=== PATIENT | female | born 1965 | race Caucasian/White ===

== ENCOUNTER 2019-06-09 04:57 | Inpatient (IN) ==
[2019-06-06 15:30] LABS: Appearance,Urine CLEAR; Bilirubin,Urine NEG (NEG); Color,Urine YELLOW; Glucose,Urine (UA) NEGATIVE (NEG); Ketones,Urine NEG (NEG); Leukocyte Esterase,Urine NEG /uL (NEG); Nitrate,Urine NEG (NEG); Protein,Urine NEG (NEG); Urine Blood NEG mg/dL (<0.03); Urobilinogen,Urine NEG (NEG)
[2019-06-06 16:08] LABS: Basophils # (Auto) 0 K/mcL (0.0-0.3); Basophils % (Auto) 0.2 % (0.0-2.0); Eosinophils # (Auto) 0.1 K/mcL (0.0-0.7); Eosinophils % (Auto) 1.7 % (0.0-7.0); Hematocrit 34.9 % (36.0-48.0); Hemoglobin 11.5 g/dL (12.0-15.0); Lymphocytes # (Auto) 1.8 K/mcL (1.5-4.8); Lymphocytes % (Auto) 24.8 % (15.5-49.0); Mean Cell Volume 82.1 fL (80.0-100.0); Mean Corpuscular HGB Conc 32.9 g/dL (31.0-36.0); Mean Platelet Volume 8.2 fL (7.4-10.4); Monocytes # (Auto) 0.5 K/mcL (0.1-0.9); Monocytes % (Auto) 7.3 % (1.0-12.0); Platelet Count 194 K/mcL (140-440); RBC 4.25 M/mcL (4.00-5.20); Red Cell Distribution Width 21.1 % (11.5-14.5); WBC 7.2 K/mcL (4.5-11.0)
[2019-06-06 16:59] LABS: Blood Urea Nitrogen 13 mg/dl (6-20); Carbon Dioxide 25 mmol/L (22-30); Chloride 100 mmol/L (96-108); Glomerular Filtration Rate 100; Glucose 86 mg/dL (70-105)
[2019-06-09] MEDS ORDERED: IPRATROPIUM/ALBUTEROL 3 ML AMPUL.NEB NEB PRN ×2 (05:00→08:30)
[2019-06-09] MEDS ORDERED: SCOPOLAMINE 1 PATCH PATCH TOPICAL PRN (05:00)
[2019-06-09] MEDS ORDERED: ceFAZolin 2 GM in DEXTROSE 5% IN WATER 50 ML IV SCH (06:00)
[2019-06-09] MEDS ORDERED: 0.9 % SODIUM CHLORIDE 9 ML, KETOROLAC 30 MG, ROPIVACAINE HCL/PF 49.5 ML, EPINEPHrine 0.... IJ SCH (06:00)
[2019-06-09] MEDS ORDERED: ALBUTEROL SULFATE 2.5 MG/3 ML NEBULIZER ONE (07:25)
[2019-06-09] MEDS ORDERED: IPRATROPIUM/ALBUTEROL 3 ML AMPUL.NEB NEB ONE (07:26)
[2019-06-09] MEDS ORDERED: GENTAMICIN SULFATE 800 MG/20 ML VIAL IR ONE (07:26)
[2019-06-09] MEDS ORDERED: ONDANSETRON 4 MG/2 ML VIAL ONE (07:32)
[2019-06-09] MEDS ORDERED: DEXAMETHASONE 10 MG/ML VIAL ONE (07:32)
[2019-06-09] MEDS ORDERED: KETAMINE 10 MG/ML ML ONE (07:32)
[2019-06-09] MEDS ORDERED: PROPOFOL 200 MG/20 ML VIAL IV ONE (07:32)
[2019-06-09] MEDS ORDERED: MIDAZOLAM 5 MG/5 ML VIAL ONE (07:32)
[2019-06-09] MEDS ORDERED: LIDOCAINE HCL/PF 100 MG/5 ML SYRINGE IV ONE (07:32)
[2019-06-09] MEDS ORDERED: GLYCOPYRROLATE 0.2 MG/ML VIAL IV ONE (07:32)
[2019-06-09] MEDS ORDERED: PHENYLEPHRINE 10 MG/ML VIAL ONE (07:32)
[2019-06-09] MEDS ORDERED: HYDROmorphone 2 MG/ML VIAL IV PRN (08:30)
[2019-06-09] MEDS ORDERED: ONDANSETRON 4 MG/2 ML VIAL IV PRN ×2 (08:30→10:03)
[2019-06-09] MEDS ORDERED: NALOXONE HCL 0.4 MG/ML VIAL IV PRN (08:30)
[2019-06-09] MEDS ORDERED: FLUMAZENIL 0.1 MG/ML ML IV PRN (08:30)
[2019-06-09] MEDS ORDERED: METOPROLOL TARTRATE 5 MG/5 ML VIAL IV PRN (08:30)
[2019-06-09] MEDS ORDERED: fentaNYL 100 MCG/2 ML VIAL IV PRN (08:30)
[2019-06-09] MEDS ORDERED: PROMETHAZINE 25 MG/ML VIAL IV PRN (08:30)
[2019-06-09] MEDS ORDERED: ATROPINE SULFATE 0.4 MG/ML VIAL IV PRN (08:30)
[2019-06-09] MEDS ORDERED: ACETAMINOPHEN 1,000 MG/100 ML BOTTLE IV ONE (08:30)
[2019-06-09] MEDS ORDERED: LACTATED RINGERS 1,000 ML IV SCH (08:30)
[2019-06-09] MEDS ORDERED: KETOROLAC 30 MG/ML VIAL IV PRN (08:30)
[2019-06-09] MEDS ORDERED: METHOCARBAMOL 1,000 MG/10 ML VIAL IV PRN (08:30)
[2019-06-09] MEDS ORDERED: ePHEDrine 50 MG/ML AMPUL IV PRN (08:30)
[2019-06-09] MEDS ORDERED: diphenhydrAMINE 50 MG/ML VIAL IV PRN (08:30)
[2019-06-09] MEDS ORDERED: LORazepam 2 MG/ML VIAL IV ONE (08:32)
[2019-06-09] MEDS ORDERED: TRANEXAMIC ACID 1,000 MG/10 ML VIAL IV ONE (10:03)
[2019-06-09] MEDS ORDERED: POLYETHYLENE GLYCOL 3350 17 GM PACKET PO PRN (10:03)
[2019-06-09] MEDS ORDERED: FLEETS ADULT ENEMA PR PRN (10:03)
[2019-06-09] MEDS ORDERED: MAGNESIUM HYDROXIDE 30 ML ORAL.SUSP PO PRN (10:03)
[2019-06-09] MEDS ORDERED: BISACODYL 10 MG SUPP.RECT PR PRN (10:03)
[2019-06-09] MEDS ORDERED: BENZOCAINE/MENTHOL 1 LOZENGE PO PRN (10:03)
--- NOTE | 2019-06-09 10:09 | Orthopedic Procedure Note ---
Date of procedure: Note initiated : 06/09/19 at 10:08 am Service Date, if different from initiated Date: [] Pre-op diagnosis: DJD right knee Post-op diagnosis: same Procedure: R TKR Grafts/Implants: Triathlon TKR- size 4 femur, 4 tibia,12 insert, 29mm patella Anesthesia: GETA Surgeon: Eliazar Brown Neon Glass Bender: Kevin Goldberg Estimated blood loss: 0 Pathology: none sent Description of procedure: R TKR Condition: stable Disposition: PACU
[2019-06-09] MEDS: MEPERIDINE 25 MG/ML SYRINGE IV PRN ×2 (10:20→10:25)
--- NOTE | 2019-06-09 11:07 | XRay Report ---
HISTORY: Postop right knee replacement FINDINGS: There is a well positioned total knee prosthesis. No fracture is present. The lateral margin of the patella has been resected. There is a transversely oriented pin placed through the metaphyseal region of the femur. This is secondary to prior ACL repair. IMPRESSION: Well-positioned right knee prosthesis Interpreted and Authenticated by: Ross Allen 06/09/19
[2019-06-09] MEDS: 0.9 % SODIUM CHLORIDE 1,000 ML IV SCH ×2 (11:11→23:46)
[2019-06-09] MEDS: KETOROLAC 15 MG/ML VIAL IV SCH ×3 (12:36→23:53)
[2019-06-09] MEDS: HYDROcodone/APAP 10/325MG TABLET PO PRN ×2 (12:41→17:29)
[2019-06-09] MEDS: ceFAZolin 1 GM VIAL IV SCH ×2 (15:47→23:46)
[2019-06-09] MEDS: HYDROmorphone 2 MG/ML VIAL IV PRN ×3 (15:48→23:01)
[2019-06-09] MEDS: 0.9 % SODIUM CHLORIDE 10 ML SYRINGE IV SCH ×2 (15:48→22:05)
[2019-06-09] MEDS: DOCUSATE SODIUM 100 MG CAPSULE PO SCH (19:05)
[2019-06-09] MEDS: ASPIRIN 81 MG TAB.CHEW PO SCH (19:05)
[2019-06-09] MEDS: SENNOSIDES 1 TABLET PO SCH (19:05)
[2019-06-09] MEDS: oxyCODONE/APAP 5/325MG TABLET PO PRN (22:05)
[2019-06-10] MEDS: HYDROmorphone 2 MG/ML VIAL IV PRN ×2 (01:13→05:23)
[2019-06-10] MEDS: oxyCODONE/APAP 5/325MG TABLET PO PRN (04:20)
[2019-06-10] MEDS: KETOROLAC 15 MG/ML VIAL IV SCH ×4 (05:24→23:40)
[2019-06-10] MEDS: 0.9 % SODIUM CHLORIDE 10 ML SYRINGE IV SCH ×3 (06:05→20:40)
[2019-06-10] MEDS ORDERED: METHOCARBAMOL 750 MG TABLET PO PRN (07:23)
[2019-06-10] MEDS ORDERED: ZOLPIDEM 5 MG TABLET PO PRN (07:24)
[2019-06-10] MEDS ORDERED: ALBUTEROL SULFATE 1 PUFF INHALER INH PRN (07:26)
[2019-06-10] MEDS ORDERED: HYDROcodone/APAP 10/325MG TABLET PO PRN (07:26)
[2019-06-10] MEDS ORDERED: FLUTICASONE PROPIONATE SPRAY.NAS NS PRN (07:26)
[2019-06-10] MEDS ORDERED: IPRATROPIUM/ALBUTEROL 3 ML AMPUL.NEB NEB PRN (07:26)
--- NOTE | 2019-06-10 07:29 | Orthopedic Progress Note ---
Subjective Patient information: Note initiated : 06/10/19 at 7:28 am Service Date, if different from initiated Date: [] Patient: Ekaterina Samuel 53 y/o F admitted on 06/09/19 for Right Total Knee Arthroplasty TezTom. Chief Complaint: [] Objective Vital signs: Vital Signs Temp Pulse Pulse Resp BP BP Pulse Ox 06/10/19 07:02 20 95 06/10/19 06:56 98.3 F 20 98/61 95 06/10/19 04:00 97.8 F 54 L 17 107/64 97 06/10/19 01:22 50 L 121/71 96 06/10/19 00:00 97.3 F 53 L 16 90/54 97 06/09/19 21:00 98 F 67 16 106/65 96 06/09/19 17:48 62 06/09/19 16:00 98.0 F 60 16 110/63 99 06/09/19 14:03 62 06/09/19 14:00 98.0 F 62 16 103/60 99 06/09/19 13:00 98.1 F 65 16 110/52 99 06/09/19 12:30 98.0 F 62 16 106/64 99 06/09/19 12:00 98.0 F 65 18 95/48 100 06/09/19 11:45 97.8 F 55 L 18 110/63 99 06/09/19 11:30 97.8 F 60 16 107/64 99 06/09/19 11:15 98.0 F 66 16 109/68 99 06/09/19 11:00 97.6 F 58 L 18 107/54 99 06/09/19 10:50 68 16 119/56 100 06/09/19 10:40 70 16 116/81 99 06/09/19 10:30 98 F 79 14 129/59 06/09/19 10:20 84 14 141/66 100 06/09/19 10:10 85 85 14 135/62 100 06/09/19 10:05 102 H 91 H 14 130/63 100 06/09/19 10:03 68 06/09/19 10:01 97.6 F 102 H 14 126/55 100 Intake and Output 06/09/19 06/10/19 06/10/19 21:59 05:59 13:59 Intake Total 1040 1244 476 Output Total 800 400 Balance 240 844 476 Intake: IV 944 476 Sodium Chloride 0.9% 1,000 ml @ 944 476 75 mls/hr IV .[id number] ANGELINA Rx#: [id number] Oral 1040 300 Output: Void Amount 800 400 Other: Meal Dinner Percent of Meal Consumed 75% Feeding Ability Independent Urine Color Bright Yellow Dark Yellow Bright Yellow Urine Odor Normal Normal # Voids 1 Weight 138 lb 12.8 oz Intake & Output: Intake & Output 06/09/19 06/10/19 06/10/19 21:59 05:59 13:59 Intake Total 1040 1244 476 Output Total 800 400 Balance 240 844 476 Weight 138 lb 12.8 oz Intake: IV 944 476 Sodium Chloride 0.9% 1,000 ml @ 944 476 75 mls/hr IV .[id number] ANGELINA Rx#: [id number] Oral 1040 300 Output: Void Amount 800 400 Other: Meal Dinner Percent of Meal Consumed 75% Feeding Ability Independent Urine Color Bright Yellow Dark Yellow Bright Yellow Urine Odor Normal Normal # Voids 1 Dressing: Yes clean, Yes dry Weight bearing status: full Additional Comments: can df against gravity - Diagnostic Results Knee x-ray: image reviewed (well realigned TKR; no complications) - Labs CBC & BMP: 06/06/19 14:01 06/06/19 14:01 Labs: 06/06/19 14:01 Hgb 11.5 L Hct 34.9 L Assessment and Plan (1) Failed total knee replacement Status: Acute - Narrative A/P Narrative: difficulty with pain magmt as aspected social service consult
[2019-06-10] MEDS ORDERED: BUPRENORPHINE HCL 4 MG SL SCH (07:30)
[2019-06-10] MEDS: LORazepam 1 MG TABLET PO PRN ×2 (07:49→14:29)
[2019-06-10] MEDS: LEVOTHYROXINE 150 MCG TABLET PO SCH (07:54)
[2019-06-10] MEDS: DOCUSATE SODIUM 100 MG CAPSULE PO SCH ×2 (09:30→20:38)
[2019-06-10] MEDS: OMEPRAZOLE 20 MG CAPSULE PO SCH ×2 (09:30→20:39)
[2019-06-10] MEDS: ASPIRIN 81 MG TAB.CHEW PO SCH ×2 (09:30→20:38)
[2019-06-10] MEDS: ESTRADIOL 1 MG TABLET PO SCH (09:30)
[2019-06-10] MEDS: PREGABALIN 75 MG CAPSULE PO SCH ×2 (09:30→20:39)
[2019-06-10] MEDS: LIOTHYRONINE 5 MCG TABLET PO SCH (09:31)
[2019-06-10] MEDS: LISINOPRIL 10 MG TABLET PO SCH (09:31)
[2019-06-10] MEDS: lamoTRIgine 100 MG TABLET PO SCH (09:39)
--- NOTE | 2019-06-10 10:25 | Operative Note ---
DATE OF OPERATION: 06/09/2019 PREOPERATIVE DIAGNOSIS: Degenerative joint disease of the right knee. POSTOPERATIVE DIAGNOSIS: Degenerative joint disease of the right knee. OPERATION: Right total knee replacement with ARTURO assistance. SURGEON: Eliazar Brown MD HEALTH CENTER ASSOCIATE: Kevin Goldberg PA-C. This provider's expertise and technical skill were required throughout the case. The [place] assisted with preoperative coordination, intraoperative retraction, wound closure, dressing and splint application, as well as postoperative documentation and care coordination. ESTIMATED BLOOD LOSS: 100 mL TOURNIQUET TIME: 100 minutes. SUMMARY OF PROCEDURE: General anesthesia was attained. The right knee was prepped and draped. A midline incision was made from the quadriceps to the tibial tubercle. This was taken down to the quadriceps and medial retinaculum. A mid vastus approach was used. The patella was mobilized laterally. The menisci and ACL were resected. Two stab incisions were made in the femur and two in the tibia for the placement of the pins and the arrays. Two 4.0 pins were placed that corresponded with the femoral array and 3.2 pins placed into the tibia for the tibial array. The arrays were placed. The hip center was located by counterclockwise rotation of the leg. The medial and lateral menisci were next identified. Soft tissue balancing was done and adjusted for stable balance between flexion and extension and the medial and lateral compartments. Forty anatomic landmarks were located on the tibia and 40 on the femur. These were confirmed using standard technique and the registration at this point completed. We then used the robotic arm to make all the bone cuts on the tibia and on the femur. The tibia sized to a 4. The external rotation was adjusted on the tibia using the ARTURO. The tibia was then prepped by drilling and broaching the tibia. Trials were then done using the tibia and femoral component. Two peg holes were drilled into the femur using the trial. The components were next cemented in. We trialed the inserts and got the best combination of full range of motion and balance using a 12 mm CR insert. The patella was next everted. A 9 mm resection was done of the patella, leaving 14 mm intact. The patella sized to a 29. Excess lateral facet was removed using a saw. The components were next cemented in. Excess cement was removed meticulously. The knee was injected throughout with multinodal solution for postoperative analgesia using standard solution. The tourniquet was let down. All bleeding points were coagulated. There was some tightness of the iliotibial band noted and this was released. The quadriceps and medial retinaculum were closed with two running sutures of Stratafix. The subcutaneous tissue was closed with interrupted buried 2-0 Monocryl and the skin was closed with ashley. A sterile compressive dressing was applied. Sponge and needle count was correct. The patient tolerated the procedure well and was taken to the recovery room in stable condition. TJF:elizabeth Job ID: [id number] Doc ID: [id number] Eliazar Brown MD
[2019-06-10] MEDS: morphine 15 MG TABLET PO PRN ×4 (11:28→23:54)
[2019-06-10] MEDS: METHOCARBAMOL 500 MG TABLET PO PRN ×2 (12:59→23:55)
[2019-06-10] MEDS: 0.9 % SODIUM CHLORIDE 1,000 ML IV SCH (13:07)
[2019-06-10] MEDS: ACETAMINOPHEN 325 MG TABLET PO PRN ×2 (16:26→20:46)
[2019-06-10] MEDS: CYCLOBENZAPRINE 10 MG TABLET PO PRN (19:48)
[2019-06-10] MEDS: SENNOSIDES 1 TABLET PO SCH (20:39)
[2019-06-11] MEDS: 0.9 % SODIUM CHLORIDE 1,000 ML IV SCH (03:26)
[2019-06-11] MEDS: ACETAMINOPHEN 325 MG TABLET PO PRN ×4 (04:00→20:49)
[2019-06-11] MEDS: LORazepam 1 MG TABLET PO PRN ×2 (04:01→18:33)
[2019-06-11] MEDS: morphine 15 MG TABLET PO PRN ×6 (04:01→23:16)
[2019-06-11] MEDS: KETOROLAC 15 MG/ML VIAL IV SCH (05:53)
[2019-06-11] MEDS: 0.9 % SODIUM CHLORIDE 10 ML SYRINGE IV SCH ×3 (05:54→20:50)
[2019-06-11] MEDS: CYCLOBENZAPRINE 10 MG TABLET PO PRN ×2 (07:59→23:17)
[2019-06-11] MEDS: LEVOTHYROXINE 150 MCG TABLET PO SCH (07:59)
--- NOTE | 2019-06-11 09:19 | Orthopedic Progress Note ---
Subjective Patient information: Note initiated : 06/11/19 at 9:14 am Service Date, if different from initiated Date: [] Patient: Ekaterina Samuel 53 y/o F admitted on 06/09/19 for Right Total Knee Arthroplasty Tom Reagan. Chief Complaint: [S/p Right TKA] Patient ambulates slowly with the use of a walker. She complains of both knee pain and right hip pain. She denies any chest pain, SOA, lower extremity calf tenderness. Objective Vital signs: Vital Signs Temp Pulse Resp BP BP Pulse Ox 06/11/19 08:00 99.2 F H 86 16 114/69 97 06/11/19 05:50 98.8 F 06/11/19 04:00 100.2 F H 84 16 125/60 98 06/10/19 23:55 100.4 F H 85 16 140/75 97 06/10/19 21:50 101.1 F H 06/10/19 20:46 101.9 F H 06/10/19 19:15 102.1 F H 93 H 20 149/78 96 06/10/19 17:11 100.9 F H 06/10/19 16:26 101.1 F H 06/10/19 16:00 105.5 F H 18 143/75 99 06/10/19 11:52 99.3 F H 20 98/50 99 Intake and Output 06/10/19 06/11/19 06/11/19 21:59 05:59 13:59 Intake Total 800 250 Output Total 1000 1150 Balance -200 -900 Intake: Oral 800 250 Output: Void Amount 1000 1150 Other: Urine Appearance Clear Clear Urine Color Bright Yellow Bright Yellow Urine Odor Normal Weight 135 lb 9.6 oz Intake & Output: Intake & Output 06/10/19 06/11/19 06/11/19 21:59 05:59 13:59 Intake Total 800 250 Output Total 1000 1150 Balance -200 -900 Weight 135 lb 9.6 oz Intake: Oral 800 250 Output: Void Amount 1000 1150 Other: Urine Appearance Clear Clear Urine Color Bright Yellow Bright Yellow Urine Odor Normal Incision: Yes healing, Yes clean and dry Incision clean and dry: Yes Dressing: Yes clean, Yes dry, Yes intact Weight bearing status: full Neurological exam IM: Yes oriented X3, Yes motor sensory intact, Yes neurovascular intact Extremities exam IM: Yes calf tenderness (negative bilat), Yes Minnie's sign (negative bilat) - Labs CBC & BMP: 06/06/19 14:01 06/06/19 14:01 Labs: 06/06/19 14:01 Hgb 11.5 L Hct 34.9 L Assessment and Plan (1) Status post total right knee replacement Ambulate with PT today. Discharge to SNF tomorrow. Discharge pain medication per Dr. Brown. Status: Acute
[2019-06-11] MEDS: DOCUSATE SODIUM 100 MG CAPSULE PO SCH ×2 (09:20→20:49)
[2019-06-11] MEDS: ASPIRIN 81 MG TAB.CHEW PO SCH ×2 (09:20→20:49)
[2019-06-11] MEDS: OMEPRAZOLE 20 MG CAPSULE PO SCH ×2 (09:21→20:49)
[2019-06-11] MEDS: lamoTRIgine 100 MG TABLET PO SCH (09:21)
[2019-06-11] MEDS: PREGABALIN 75 MG CAPSULE PO SCH ×2 (09:22→20:48)
[2019-06-11] MEDS: ESTRADIOL 1 MG TABLET PO SCH (09:22)
[2019-06-11] MEDS: LISINOPRIL 10 MG TABLET PO SCH (09:23)
[2019-06-11] MEDS: LIOTHYRONINE 5 MCG TABLET PO SCH (09:23)
--- NOTE | 2019-06-11 14:43 | Ultrasound Report ---
History: Pain in the right leg following total knee replacement FINDINGS: There is normal augmentation and compressibility of the deep veins and saphenous vein from the groin through the calf. Doppler shows normal waveform patterns. IMPRESSION: Normal exam, without deep venous thrombosis Interpreted and Authenticated by: Ross Allen 06/11/19
[2019-06-11] MEDS: HYDROmorphone 2 MG/ML VIAL IV PRN ×2 (14:49→21:01)
[2019-06-11] MEDS: METHOCARBAMOL 500 MG TABLET PO PRN (14:50)
[2019-06-11] MEDS: SENNOSIDES 1 TABLET PO SCH (20:49)
[2019-06-12] MEDS: ACETAMINOPHEN 325 MG TABLET PO PRN ×3 (03:20→18:52)
[2019-06-12] MEDS: METHOCARBAMOL 500 MG TABLET PO PRN ×2 (03:21→16:53)
[2019-06-12] MEDS: morphine 15 MG TABLET PO PRN ×2 (03:21→07:05)
[2019-06-12] MEDS: 0.9 % SODIUM CHLORIDE 10 ML SYRINGE IV SCH ×3 (06:01→20:49)
[2019-06-12] MEDS: LEVOTHYROXINE 150 MCG TABLET PO SCH (07:02)
[2019-06-12] MEDS: OMEPRAZOLE 20 MG CAPSULE PO SCH ×2 (07:06→20:47)
[2019-06-12] MEDS ORDERED: ALENDRONATE SODIUM 70 MG TABLET PO SCH (07:30)
[2019-06-12] MEDS ORDERED: TRANEXAMIC ACID 1,000 MG/10 ML VIAL IV ONE (07:50)
--- NOTE | 2019-06-12 07:56 | Orthopedic Progress Note ---
Subjective Patient information: Note initiated : 06/12/19 at 7:54 am Service Date, if different from initiated Date: [] Patient: Ekaterina Samuel 53 y/o F admitted on 06/09/19 for Right Total Knee Arthroplasty TezTom. Chief Complaint: [] Objective Vital signs: Vital Signs Temp Pulse Resp BP BP Pulse Ox 06/12/19 06:48 99.2 F H 20 118/71 97 06/12/19 05:55 100.8 F H 06/12/19 04:25 100.8 F H 06/12/19 03:20 103.1 F H 06/12/19 03:15 103.1 F H 95 H 16 137/78 97 06/11/19 23:15 100.2 F H 91 H 16 117/68 96 06/11/19 18:30 99.7 F H 89 12 107/59 96 06/11/19 16:07 99.2 F H 06/11/19 16:00 99.2 F H 91 H 18 111/66 97 06/11/19 12:01 100.5 F H 06/11/19 12:00 100.5 F H 86 20 116/75 100 06/11/19 10:43 100.3 F H 06/11/19 08:00 99.2 F H 86 16 114/69 97 Intake and Output 06/11/19 06/12/19 06/12/19 21:59 05:59 13:59 Intake Total 1300 960 Output Total 325 1725 Balance 975 -765 Intake: Oral 1300 960 Output: Void Amount 325 1725 Other: Urine Appearance Clear Clear Urine Color Dark Yellow Bright Yellow Weight 139 lb 11.2 oz Intake & Output: Intake & Output 06/11/19 06/12/19 06/12/19 21:59 05:59 13:59 Intake Total 1300 960 Output Total 325 1725 Balance 975 -765 Weight 139 lb 11.2 oz Intake: Oral 1300 960 Output: Void Amount 325 1725 Other: Urine Appearance Clear Clear Urine Color Dark Yellow Bright Yellow Incision: Yes swollen, Yes inflamed Incision clean and dry: No Weight bearing status: full Neurological exam IM: Yes neurovascular intact Extremities exam IM: Yes Foot pink and warm, Yes neurovascular intact - Labs CBC & BMP: 06/06/19 14:01 09/30/19 14:01 Labs: 06/06/19 14:01 Hgb 11.5 L Hct 34.9 L Assessment and Plan (1) Failed total knee replacement postop fever will get esr, crp, cbc, cxr, ua, hospitalists consult 1 gm txa for bleeding postop pain chronic opiods preop; dilaudid oral (only) now Status: Acute
[2019-06-12 08:56] LABS: Hematocrit 26.7 % (36.0-48.0); Hemoglobin 8.9 g/dL (12.0-15.0); Mean Cell Volume 82.3 fL (80.0-100.0); Mean Corpuscular HGB Conc 33.3 g/dL (31.0-36.0); Mean Platelet Volume 8.2 fL (7.4-10.4); Platelet Count 191 K/mcL (140-440); RBC 3.24 M/mcL (4.00-5.20); Red Cell Distribution Width 19.7 % (11.5-14.5); WBC 12.8 K/mcL (4.5-11.0)
[2019-06-12] MEDS: LORazepam 1 MG TABLET PO PRN ×2 (09:00→20:47)
[2019-06-12] MEDS: CYCLOBENZAPRINE 10 MG TABLET PO PRN (09:00)
[2019-06-12] MEDS ORDERED: ERGOCALCIFEROL (VITAMIN D2) 50,000 UNIT CAPSULE PO SCH (09:00)
[2019-06-12 09:11] LABS: C-Reactive Protein 15.6 mg/dl (0.0-0.8)
[2019-06-12] MEDS: PREGABALIN 75 MG CAPSULE PO SCH ×2 (09:14→20:33)
[2019-06-12] MEDS: LISINOPRIL 10 MG TABLET PO SCH (09:14)
[2019-06-12] MEDS: DOCUSATE SODIUM 100 MG CAPSULE PO SCH ×2 (09:14→20:33)
[2019-06-12] MEDS: LIOTHYRONINE 5 MCG TABLET PO SCH (09:14)
[2019-06-12] MEDS: lamoTRIgine 100 MG TABLET PO SCH (09:14)
[2019-06-12] MEDS: ASPIRIN 81 MG TAB.CHEW PO SCH ×2 (09:15→20:32)
[2019-06-12 09:20] LABS: Anisocytosis 1+ (NONE SEEN); Lymphocytes % 20 % (15-49); Monocytes % (Manual) 7 % (1-12); Platelet Estimate NORMAL (NORMAL); RBC Morphology ABNORM (NORMAL); Segmented Neutrophils % 73 % (38-78)
[2019-06-12 09:27] LABS: Erythrocyte Sedimentation Rate 65 mm/hr (0-20)
--- NOTE | 2019-06-12 09:54 | Internal Med History&Physical ---
Medical - H&P: HPI Patient information: Note initiated : 06/12/19 at 9:49 am Service Date, if different from initiated Date: [] Patient: Ekaterina Samuel a 53 y/o F admitted on 06/09/19 for Right Total Knee Arthroplasty Tom Reagan. Chief Complaint: [] History of present illness: Ms. Samuel is a 53 year old F On the third for elective right total knee arthroplasty. The next day on the fourth 24 hours after she started developing fevers of 102 which fluctuated between 100-1033 over the next couple days. She has had quite a bit of tissue edema over the last day or 2 but no purulent drainage. Is a very anxious person and appears. Because of the persistent fever hospitalist was consulted. She does have a mild leukocytosis although this could just be postoperative, no bandemia urinalysis and chest x-ray were unremarkable. She complains of fever chills headache and knee pain. Poor sleep last night because of knee pain. Review of Systems: Pertinent positives as above. Denies nausea/vomiting/chest or abdominal pain/cough/dyspnea/diarrhea. Remaining 10 point review of system reviewed negative Medical - H&P: PMH Medical history: Medical History Bipolar disorder GERD Hypertension Osteoarthritis COPD not on home oxygen Anemia chronic Hypothyroidism Surgical history: Right knee total arthroplasty, previous right knee surgeries Cholecystectomy Rhinoplasty Partial nephrectomy Family history: Mother hypertension Father with cirrhosis from alcohol use Social history: Patient quit smoking in July 2018 Patient quit drinking alcohol July 2018 Ambulates with a cane occasionally At home with her son Medical - H&P: Meds Home Medications Medication Instructions Recorded Confirmed Type Ipratropium/Albuterol [Duoneb] 3 ml NEB Q6HP PRN #30 ampul.neb 07/29/15 06/09/19 Rx Estradiol 2 mg PO DAILY 05/13/19 06/09/19 History HYDROcodone/ACETAMINOPHEN 1 tab PO QIDP PRN 05/13/19 06/09/19 History [Hydrocodone-Acetamin 10-325 mg] Albuterol Sulfate [Albuterol 2 puff INH Q6HP PRN 06/06/19 06/09/19 History Sulfate Hfa] Alendronate Sodium [Fosamax] 70 mg PO WEEKLY 06/06/19 06/09/19 History Budesonide/Formoterol Fumarate 10.2 gm IH PRN PRN 06/06/19 06/09/19 History [Symbicort 160-4.5 Mcg Inhaler] Ergocalciferol (Vitamin D2) 50,000 unit PO WEEKLY 06/06/19 06/09/19 History [Vitamin D2] Levothyroxine [Synthroid] 150 mcg PO DAILY 06/06/19 06/09/19 History Liothyronine Sodium [Cytomel] 12.5 mcg PO DAILY 06/06/19 06/09/19 History Lisinopril [Zestril] 10 mg PO DAILY 06/06/19 06/09/19 History Omeprazole [PriLOSEC] 40 mg PO BID 06/06/19 06/09/19 History Pregabalin [Lyrica] 75 mg PO BID 06/06/19 06/09/19 History lamoTRIgine [Lamictal] 400 mg PO DAILY 06/06/19 06/09/19 History Buprenorphine HCl 4 mg SL Q6H 06/07/19 06/09/19 History Cyclobenzaprine [Flexeril] 10 mg PO BIDP PRN 06/07/19 06/09/19 History Fluticasone Propionate [Flonase] 1 spray NS BIDP PRN 06/07/19 06/09/19 History Methocarbamol [Robaxin] 750 mg PO Q8HP PRN 06/10/19 06/10/19 History Allergies Allergy/AdvReac Type Severity Reaction Status Date / Time bee venom protein (honey bee) Allergy Severe Anaphylaxis Verified 06/10/19 00:06 Medical - H&P: Exam - Constitutional Vitals: Temp Pulse Resp BP Pulse Ox 99.2 F H 95 H 20 118/71 97 06/12/19 06:48 06/12/19 03:15 06/12/19 06:48 06/12/19 06:48 06/12/19 06:48 Exam: General: Drowsy but received Ativan, no acute Distress Eyes/N/T: EOMI, PEERL Head/Neck: neck supple, normocephalic atraumatic CV: RRR, 2/6 SM Pulm: Clear b/l, no wheezing/rhonchi/rales Abd: soft, nontender, +BS x4 Ext: no clubbing/cyanosis. Right lower extremity in dressings with edema Neuro: awakens, no focal deficits, moves all extremities, CN 2-12 grossly intact, sensations intact b/l upper/lower Skin: warm/dry Medical - H&P: Reslt - Labs CBC & Chem 7: 06/12/19 08:17 06/06/19 14:01 Labs: Short CBC 06/12/19 Range/Units 08:17 WBC 12.8 H (4.5-11.0) K/mcL Hgb 8.9 L (12.0-15.0) g/dL Hct 26.7 L (36.0-48.0) % Plt Count 191 (140-440) K/mcL - Impressions Chest x-ray unremarkable Medical - H&P: A/P - Narrative A/P Narrative: A: *Fever, postoperative: -mild leukocytosis but no bandemia, CXR/UA unremarkable -PE/DVT in diff, although not appearing clinically like PE *Right TKA (06/09): *Bipolar d/o: *COPD (no home oxygen): *HTN: *Anemia, chronic: *Hypothyroidism: *GERD: * P: -CTA chest -LE venous doppler -BC pending, PCT pending -Ortho -cont home psych meds -cont lisinopril -pt/ot -ppx: ASA/home ppi Medical - H&P: Qual - Stroke Symptom Onset Unknown: No - VTE Deep Vein Thrombosis/Pulmonary Embolism Present on Admission: No
[2019-06-12 10:19] LABS: Appearance,Urine CLEAR; Bilirubin,Urine NEG (NEG); Color,Urine YELLOW; Culture Indicated,Urine NO; Glucose,Urine (UA) NEGATIVE (NEG); Ketones,Urine NEG (NEG); Leukocyte Esterase,Urine NEG /uL (NEG); Nitrate,Urine NEG (NEG); Protein,Urine NEG (NEG); Specific Gravity,Urine 1.008 (1.000-1.035); Urine Blood NEG mg/dL (<0.03); Urobilinogen,Urine NEG (NEG)
[2019-06-12] MEDS ORDERED: IOPAMIDOL 100 ML BOTTLE IV ONE (10:35)
[2019-06-12] MEDS: HYDROmorphone 2 MG TABLET PO PRN ×3 (10:35→18:36)
--- NOTE | 2019-06-12 14:12 | XRay Report ---
HISTORY: Postop fever after knee surgery FINDINGS: The lungs are clear. The heart, mediastinum, gamal and pleura are normal. IMPRESSION: Normal chest, without pneumonia or atelectasis. Interpreted and Authenticated by: Ross Allen 06/12/19
--- NOTE | 2019-06-12 14:18 | Cat Scan Report ---
History: Fever, possible pulmonary emboli following recent recent right knee total arthroplasty TECHNIQUE: Following injection of intravenous nonionic contrast, arterial phase images were acquired from the thoracic inlet through the diaphragms. Sagittal, coronal and axial MIPS images were created. Radiation exposure was limited using dose reduction technology. FINDINGS: The pulmonary arteries are normal with no intraluminal filling defects. The lungs are clear. There is no pneumonia, mass or emphysema. No adenopathy or pleural effusion are present. The heart is normal in size and contour. The aorta is normal in caliber. There is no significant plaque formation. IMPRESSION: Normal exam Interpreted and Authenticated by: Ross Allen 06/12/19
[2019-06-12] MEDS: SENNOSIDES 1 TABLET PO SCH (20:33)
[2019-06-13] MEDS: HYDROmorphone 2 MG TABLET PO PRN ×3 (01:36→09:29)
[2019-06-13] MEDS: ACETAMINOPHEN 325 MG TABLET PO PRN (02:37)
[2019-06-13] MEDS: CYCLOBENZAPRINE 10 MG TABLET PO PRN (02:37)
[2019-06-13] MEDS: LORazepam 1 MG TABLET PO PRN (03:28)
[2019-06-13] MEDS: 0.9 % SODIUM CHLORIDE 10 ML SYRINGE IV SCH (05:40)
[2019-06-13 07:01] LABS: Hematocrit 22.9 % (36.0-48.0); Hemoglobin 7.6 g/dL (12.0-15.0); Mean Cell Volume 83.4 fL (80.0-100.0); Mean Corpuscular HGB Conc 33.2 g/dL (31.0-36.0); Mean Platelet Volume 8.1 fL (7.4-10.4); Platelet Count 154 K/mcL (140-440); RBC 2.74 M/mcL (4.00-5.20); Red Cell Distribution Width 18.1 % (11.5-14.5); WBC 9.6 K/mcL (4.5-11.0)
--- NOTE | 2019-06-13 07:22 | Internal Med Progress Note ---
Medical - PN: Subj Patient information: Note initiated : 06/13/19 at 7:18 am Service Date, if different from initiated Date: [] Patient: Ekaterina Samuel a 53 y/o F admitted on 06/09/19 for Right Total Knee Arthroplasty Tez, Tom. Chief Complaint: [] Interval history: Ms. Samuel is a 53 year old F On the third for elective right total knee arthroplasty. The next day on the fourth 24 hours after she started developing fevers of 102 which fluctuated between 100-1033 over the next couple days. She has had quite a bit of tissue edema over the last day or 2 but no purulent drainage. Is a very anxious person and appears. Because of the persistent fever hospitalist was consulted. She does have a mild leukocytosis although this could just be postoperative, no bandemia urinalysis and chest x-ray were unremarkable. She complains of fever chills headache and knee pain. Poor sleep last night because of knee pain. 06/13 Slept a little bit more last night was still difficult to sleep. Has right knee pain blisters around right knee. Complains of headache fevers chills. Review of Systems: denies nausea/vomiting/chest or abdominal pain/cough/dyspnea/diarrhea. Otherwise see above. - Constitutional Vitals: Vital Signs Temp Pulse Resp BP Pulse Ox 99.2 F H 80 16 96/54 96 06/13/19 04:00 06/13/19 04:00 06/13/19 04:00 06/12/19 22:43 06/12/19 22:43 Period Temp Pulse Resp BP Sys/Joe Pulse Ox Last 24 Hr 99.2 F-102.2 F 80-82 16-20 96-118/54-64 96-98 Intake and Output 06/12/19 06/13/19 06/13/19 21:59 05:59 13:59 Intake Total 300 550 Output Total 1700 450 Balance -1400 100 Weight 62.913 kg Intake & Output: Intake & Output 06/12/19 06/13/19 06/13/19 21:59 05:59 13:59 Intake Total 300 550 Output Total 1700 450 Balance -1400 100 Weight 62.913 kg Intake: Oral 300 550 Output: Void Amount 1700 450 Other: Urine Appearance Clear Urine Color Dark Yellow Exam: General: Alert and awake, appears anxious eyes/N/T: EOMI, Head/Neck: neck supple, CV: RRR, 2/6 SM Pulm: Clear b/l, no wheezing/rhonchi/rales Abd: soft, nontender, +BS x4 Ext: no clubbing/cyanosis. Right knee with incision intact, swollen with blisters around the knee neuro: Alert and awake, no focal deficits, moves all extremities, Skin: warm/dry Medical - PN: Obj Da - Labs CBC & Chem 7: 06/13/19 05:23 06/06/19 14:01 Labs: Abnormal Lab Results 06/13/19 06/12/19 06/12/19 05:23 08:17 08:17 WBC 12.8 H RBC 2.74 L 3.24 L Hgb 7.6 L 8.9 L Hct 22.9 L 26.7 L RDW 18.1 H 19.7 H RBC Morphology Abnorm A Anisocytosis 1+ A ESR 65 H C-Reactive Protein 15.6 H Meds: Medications Acetaminophen (Tylenol) 0 mg PO Q4HP PRN; Protocol PRN Reason: PAIN/FEVER > 101 Last Admin: 06/13/19 02:37 Dose: 650 mg Documented by: Albuterol Sulfate (Ventolin) 2 puff INH Q6HP PRN PRN Reason: Shortness Of Breath Albuterol/Ipratropium (Duoneb) 3 ml NEB Q6HP PRN PRN Reason: Dyspnea Alendronate Sodium (Fosamax) 70 mg PO WEEKLY [facility] Aspirin (Aspirin) 81 mg PO BID [facility] Last Admin: 06/12/19 20:32 Dose: 81 mg Documented by: Bisacodyl (Dulcolax) 10 mg CA Q2-3DAYS PRN PRN Reason: Constipation Cyclobenzaprine HCl (Flexeril) 10 mg PO BIDP PRN PRN Reason: Spasms Last Admin: 06/13/19 02:37 Dose: 10 mg Documented by: Docusate Sodium (Colace) 100 mg PO BID [facility] Last Admin: 06/12/19 20:33 Dose: 100 mg Documented by: Ergocalciferol (Drisdol) 50,000 unit PO WEEKLY [facility] Fluticasone Propionate (Flonase) 1 spray NS BIDP PRN PRN Reason: ALLERGIES Hydromorphone HCl (Dilaudid) 4 mg PO Q4-6HP PRN; Protocol PRN Reason: PAIN LEVEL 3-6 Last Admin: 06/13/19 05:39 Dose: 4 mg Documented by: Lamotrigine (Lamictal) 400 mg PO DAILY [facility] Last Admin: 06/12/19 09:14 Dose: 400 mg Documented by: Levothyroxine Sodium (Synthroid) 150 mcg PO QAMAC [facility] Last Admin: 06/12/19 07:02 Dose: 150 mcg Documented by: Liothyronine Sodium (Cytomel) 12.5 mcg PO DAILY [facility] Last Admin: 06/12/19 09:14 Dose: 12.5 mcg Documented by: Lisinopril (Zestril) 10 mg PO DAILY [facility] Last Admin: 06/12/19 09:14 Dose: 10 mg Documented by: Lorazepam (Ativan) 1 - 2 mg PO Q6HP PRN PRN Reason: ANXIETY/SEDATION Last Admin: 06/13/19 03:28 Dose: 1 mg Documented by: Magnesium Hydroxide (Milk Of Magnesia) 30 ml PO BIDP PRN PRN Reason: Constipation Methocarbamol (Robaxin) 500 mg PO BIDP PRN PRN Reason: Spasms Last Admin: 06/12/19 16:53 Dose: 500 mg Documented by: Omeprazole (Prilosec) 40 mg PO BID [facility] Last Admin: 06/12/19 20:47 Dose: 40 mg Documented by: Ondansetron HCl (Zofran) 4 mg IV Q4HP PRN PRN Reason: Nausea And Vomiting Last Admin: 06/09/19 10:42 Dose: 4 mg Documented by: Symbicort 160-4.5 1 dose INH BIDP PRN PRN Reason: SHORTNESS OF BREATH Polyethylene Glycol (Miralax) 17 gm PO DAILYP PRN PRN Reason: Constipation Pregabalin (Lyrica) 75 mg PO BID [facility] Last Admin: 06/12/19 20:33 Dose: 75 mg Documented by: Oscar (Senokot) 2 tab PO HS [facility] Last Admin: 06/12/19 20:33 Dose: 2 tab Documented by: Sodium Biphosphate/Sodium Phosphate (Fleets Adult) 1 dose CA Q3-4DAYS PRN PRN Reason: Constipation Sodium Chloride (Saline Flush) 10 ml IV Q8 [facility] Last Admin: 06/13/19 05:40 Dose: 10 ml Documented by: Throat Lozenges (Cepacol) 1 lozenge PO PRN PRN PRN Reason: Sore Throat Last Admin: 06/09/19 10:22 Dose: 1 lozenge Documented by: Zolpidem Tartrate (Ambien) 5 mg PO HSP PRN PRN Reason: Insomnia Medical - PN: A/P - Time Spent With Patient Total time spent is greater than 50% in coordination of care (as documented) at patient's floor/unit and/or counseling patient: - Narrative A/P Narrative: A: *Fever, postoperative: -mild leukocytosis resolved w/o abx, no bandemia, PCT low, CXR/UA unre markable -no DVT/PE per u/s (06/11) and CTA chest (06/12) *Right TKA (06/09): *Bipolar d/o: *COPD (no home oxygen): *HTN: *Anemia, chronic: *Hypothyroidism: *GERD: * P: -BC pending -Ortho -hold off on abx at this point -cont home psych meds -cont lisinopril -pt/ot -ppx: ASA/home ppi Medical - PN: Qual - Stroke Symptom Onset Unknown: No - VTE Deep Vein Thrombosis/Pulmonary Embolism Present on Admission: No
[2019-06-13] MEDS ORDERED: HYDROmorphone 2 MG TABLET PO ONE (07:29)
--- NOTE | 2019-06-13 07:37 | Discharge Summary ---
Ortho Discharge - TKA - Patient Instructions Diet: Regular Diet Activity: activity as tolerated Total Knee Protocol: For Total Knee: Start ROM ETTA with stationary bike or rocking chair. Work on gaining full extension of knee. Posterior dislocation precautions provided. Hip abductor strengthening and gait training instructions provided. Apply Cryocuff as instructed. Dressing Care: May shower in 3 days - Problem Maintenance (1) Failed total knee replacement Status: Acute - Follow Up Plan Follow Up Appointments: Kevin Goldberg PA-C [Physician Verifying Machine Operator] - 06/17/19 Disposition: Xfer Other Prognosis: Good Rehab Potential: Fair I certify that the patient requires SNF services: Yes Overall status at discharge: patient is not back to baseline - Orders For Discharge Prescriptions: HYDROmorphone [Dilaudid] 4 mg PO Q4-6HP PRN #50 tab PRN Reason: Pain Level 3-6 Prescription Printed
--- NOTE | 2019-06-13 07:40 | Discharge Summary ---
Providers - Providers Patient information: Note initiated : 06/13/19 at 7:38 am Service Date, if different from initiated Date: [] Patient: Ekaterina Samuel 53 y/o F admitted on 06/09/19 for Right Total Knee Arthroplasty Tez Tom. Chief Complaint: [] Discharge date: 06/13/19 Hospitalization Hospital Course: had unexplained fevers. Medical workup neg for source other then knee Discharge diagnosis: knee replacement status Procedures: r total knee replacement Exam - Exam Incision swollen: Yes (blisters noted minimal redness) Weight bearing status: full Ortho Discharge - TKA - Patient Instructions Diet: Regular Diet Activity: activity as tolerated Total Knee Protocol: For Total Knee: Start ROM ETTA with stationary bike or rocking chair. Work on gaining full extension of knee. Posterior dislocation precautions provided. Hip abductor strengthening and gait training instructions provided. Apply Cryocuff as instructed. - Problem Maintenance (1) Failed total knee replacement Status: Acute - Follow Up Plan Follow Up Appointments: Kevin Goldberg PA-C [Physician Elementary Supervisor] - 06/17/19 Disposition: Xfer Other Prognosis: Good Rehab Potential: Fair I certify that the patient requires SNF services: Yes - Orders For Discharge Prescriptions: HYDROmorphone [Dilaudid] 4 mg PO Q4-6HP PRN #50 tab PRN Reason: Pain Level 3-6 Prescription Printed Pending Studies Resuscitation Status Full Code Diet Regular Diet Start Samina Oct 3 Lunch Acetaminophen (Tylenol) 0 mg PO Q4HP PRN; Protocol PRN Reason: PAIN/FEVER > 101 Last Admin: 06/13/19 02:37 Dose: 650 mg Documented by: Admin: 06/12/19 18:52 Dose: 650 mg Documented by: [email or web address] Admin: 06/12/19 11:07 Dose: 650 mg Documented by: Admin: 06/12/19 03:20 Dose: 650 mg Documented by: Admin: 06/11/19 20:49 Dose: 650 mg Documented by: Admin: 06/11/19 16:07 Dose: 650 mg Documented by: Admin: 06/11/19 12:01 Dose: 650 mg Documented by: Admin: 06/11/19 04:00 Dose: 650 mg Documented by: Admin: 06/10/19 20:46 Dose: 650 mg Documented by: Admin: 06/10/19 16:26 Dose: 650 mg Documented by: KASH Aspirin (Aspirin) 81 mg PO BID [facility] Last Admin: 06/12/19 20:32 Dose: 81 mg Documented by: Admin: 06/12/19 09:15 Dose: 81 mg Documented by: Admin: 06/11/19 20:49 Dose: 81 mg Documented by: Admin: 06/11/19 09:20 Dose: 81 mg Documented by: Admin: 06/10/19 20:38 Dose: 81 mg Documented by: Admin: 06/10/19 09:30 Dose: 81 mg Documented by: Admin: 06/09/19 19:05 Dose: 81 mg Documented by: OZZIE Cyclobenzaprine HCl (Flexeril) 10 mg PO BIDP PRN PRN Reason: Spasms Last Admin: 06/13/19 02:37 Dose: 10 mg Documented by: Admin: 06/12/19 09:00 Dose: 10 mg Documented by: Admin: 06/11/19 23:17 Dose: 10 mg Documented by: Admin: 06/11/19 07:59 Dose: 10 mg Documented by: Admin: 06/10/19 19:48 Dose: 10 mg Documented by: DARRELL Docusate Sodium (Colace) 100 mg PO BID [facility] Last Admin: 06/12/19 20:33 Dose: 100 mg Documented by: Admin: 06/12/19 09:14 Dose: 100 mg Documented by: Admin: 06/11/19 20:49 Dose: 100 mg Documented by: Admin: 06/11/19 09:20 Dose: 100 mg Documented by: Admin: 06/10/19 20:38 Dose: 100 mg Documented by: Admin: 06/10/19 09:30 Dose: 100 mg Documented by: Admin: 06/09/19 19:05 Dose: 100 mg Documented by: OZZIE Hydromorphone HCl (Dilaudid) 4 mg PO Q4-6HP PRN; Protocol PRN Reason: PAIN LEVEL 3-6 Last Admin: 06/13/19 05:39 Dose: 4 mg Documented by: Admin: 06/13/19 01:36 Dose: 4 mg Documented by: Admin: 06/12/19 18:36 Dose: 4 mg Documented by: Admin: 06/12/19 14:31 Dose: 4 mg Documented by: Admin: 06/12/19 10:35 Dose: 4 mg Documented by: AMANDA Lamotrigine (Lamictal) 400 mg PO DAILY [facility] Last Admin: 06/12/19 09:14 Dose: 400 mg Documented by: Admin: 06/11/19 09:21 Dose: 400 mg Documented by: Admin: 06/10/19 09:39 Dose: 400 mg Documented by: KASH Levothyroxine Sodium (Synthroid) 150 mcg PO QAMAC [facility] Last Admin: 06/12/19 07:02 Dose: 150 mcg Documented by: Admin: 06/11/19 07:59 Dose: 150 mcg Documented by: Admin: 06/10/19 07:54 Dose: 150 mcg Documented by: KASH Liothyronine Sodium (Cytomel) 12.5 mcg PO DAILY [facility] Last Admin: 06/12/19 09:14 Dose: 12.5 mcg Documented by: Admin: 06/11/19 09:23 Dose: 12.5 mcg Documented by: Admin: 06/10/19 09:31 Dose: 12.5 mcg Documented by: KASH Lisinopril (Zestril) 10 mg PO DAILY [facility] Last Admin: 06/12/19 09:14 Dose: 10 mg Documented by: Admin: 06/11/19 09:23 Dose: Not Given Documented by: Admin: 06/10/19 09:31 Dose: Not Given Documented by: KASH Lorazepam (Ativan) 1 - 2 mg PO Q6HP PRN PRN Reason: ANXIETY/SEDATION Last Admin: 06/13/19 03:28 Dose: 1 mg Documented by: Admin: 06/12/19 20:47 Dose: 1 mg Documented by: Admin: 06/12/19 09:00 Dose: 1 mg Documented by: Admin: 06/11/19 18:33 Dose: 1 mg Documented by: Admin: 06/11/19 04:01 Dose: 1 mg Documented by: Admin: 06/10/19 14:29 Dose: 1 mg Documented by: Admin: 06/10/19 07:49 Dose: 1 mg Documented by: KASH Methocarbamol (Robaxin) 500 mg PO BIDP PRN PRN Reason: Spasms Last Admin: 06/12/19 16:53 Dose: 500 mg Documented by: Admin: 06/12/19 03:21 Dose: 500 mg Documented by: Admin: 06/11/19 14:50 Dose: 500 mg Documented by: Admin: 06/10/19 23:55 Dose: 500 mg Documented by: Admin: 06/10/19 12:59 Dose: 500 mg Documented by: KASH Omeprazole (Prilosec) 40 mg PO BID [facility] Last Admin: 06/12/19 20:47 Dose: 40 mg Documented by: Admin: 06/12/19 07:06 Dose: 40 mg Documented by: Admin: 06/11/19 20:49 Dose: 40 mg Documented by: Admin: 06/11/19 09:21 Dose: 40 mg Documented by: Admin: 06/10/19 20:39 Dose: 40 mg Documented by: Admin: 06/10/19 09:30 Dose: 40 mg Documented by: KASH Ondansetron HCl (Zofran) 4 mg IV Q4HP PRN PRN Reason: Nausea And Vomiting Last Admin: 06/09/19 10:42 Dose: 4 mg Documented by: YOLANDA Pregabalin (Lyrica) 75 mg PO BID [facility] Last Admin: 06/12/19 20:33 Dose: 75 mg Documented by: Admin: 06/12/19 09:14 Dose: 75 mg Documented by: Admin: 06/11/19 20:48 Dose: 75 mg Documented by: Admin: 06/11/19 09:22 Dose: 75 mg Documented by: Admin: 06/10/19 20:39 Dose: 75 mg Documented by: Admin: 06/10/19 09:30 Dose: 75 mg Documented by: KASH Moore (Senokot) 2 tab PO HS [facility] Last Admin: 06/12/19 20:33 Dose: 2 tab Documented by: Admin: 06/11/19 20:49 Dose: 2 tab Documented by: Admin: 06/10/19 20:39 Dose: 2 tab Documented by: Admin: 06/09/19 19:05 Dose: 2 tab Documented by: OZZIE Sodium Chloride (Saline Flush) 10 ml IV Q8 [facility] Last Admin: 06/13/19 05:40 Dose: 10 ml Documented by: Admin: 06/12/19 20:49 Dose: 10 ml Documented by: Admin: 06/12/19 16:53 Dose: 10 ml Documented by: Admin: 06/12/19 06:01 Dose: 10 ml Documented by: Admin: 06/11/19 20:50 Dose: 10 ml Documented by: Admin: 06/11/19 16:09 Dose: 10 ml Documented by: Admin: 06/11/19 05:54 Dose: 10 ml Documented by: Admin: 06/10/19 20:40 Dose: 10 ml Documented by: Admin: 06/10/19 14:29 Dose: 10 ml Documented by: Admin: 06/10/19 06:05 Dose: Not Given Documented by: Admin: 06/09/19 22:05 Dose: Not Given Documented by: Admin: 06/09/19 15:48 Dose: Not Given Documented by: KASH Throat Lozenges (Cepacol) 1 lozenge PO PRN PRN PRN Reason: Sore Throat Last Admin: 06/09/19 10:22 Dose: 1 lozenge Documented by: YOLANDA Shift Summary 06/13/19 03:28 Shift Summary by Pepper Orozco Pt has been sleeping most of the night. Says she dozes, then has weird dreams and wakes herself up. Complains of pain any time she's awake. Getting pain meds q4h. The one time she slept for 6 hours pain was much more than earlier. Pt will fall asleep quickly once meds are given. Also had Ativan 2x & flexeril once. Tylenol twice for temp; 102.1 & 100.4 Up w/1-2 assist & FWW to BR; voiding well. Does not bear wt on rt leg. Right leg swollen, red, painful from mid thigh to ankle. MD is aware; no antibiotics o rdered at this time. Pt is planning to d/c today to [facility] for rehab. Initialized on 06/13/19 03:28 - END OF NOTE
[2019-06-13] MEDS: OMEPRAZOLE 20 MG CAPSULE PO SCH (07:44)
[2019-06-13] MEDS: METHOCARBAMOL 500 MG TABLET PO PRN (07:44)
[2019-06-13] MEDS: LEVOTHYROXINE 150 MCG TABLET PO SCH (07:44)
[2019-06-13 07:54] LABS: ALT/SGPT 15 U/l (0-40); AST/SGOT 20 U/l (0-37); Albumin 3.3 gm/dL (3.2-5.2); Albumin/Globulin Ratio 1.1 (1.0-2.3); Alkaline Phosphatase 71 U/L (39-117); Bilirubin,Direct 0.2 mg/dL (0.0-0.3); Bilirubin,Total 0.7 mg/dL (0.0-1.0); Blood Urea Nitrogen 7 mg/dl (6-20); Calcium 8.3 mg/dl (8.6-10.4); Carbon Dioxide 24 mmol/L (22-30); Chloride 103 mmol/L (96-108); Globulin 2.9 gm/dL (2.2-3.7); Glomerular Filtration Rate 106; Glucose 107 mg/dL (70-105); Lactate Dehydrogenase 225 U/L (94-250); Phosphorous 2.9 mg/dL (2.7-4.5); Triglycerides 66 mg/dl (<150); Uric Acid 2.8 mg/dL (2.5-8.0)
[2019-06-13 09:01] LABS: Anisocytosis 1+ (NONE SEEN); Lymphocytes % 11 % (15-49); Monocytes % (Manual) 11 % (1-12); Platelet Estimate NORMAL (NORMAL); RBC Morphology ABNORM (NORMAL); Segmented Neutrophils % 78 % (38-78)
[2019-06-13] MEDS: lamoTRIgine 100 MG TABLET PO SCH (09:54)
[2019-06-13] MEDS: DOCUSATE SODIUM 100 MG CAPSULE PO SCH (09:55)
[2019-06-13] MEDS: ASPIRIN 81 MG TAB.CHEW PO SCH (09:55)
[2019-06-13] MEDS: LIOTHYRONINE 5 MCG TABLET PO SCH (09:56)
[2019-06-13] MEDS: PREGABALIN 75 MG CAPSULE PO SCH (09:56)
[2019-06-13] MEDS: LISINOPRIL 10 MG TABLET PO SCH (09:56)
== END 2019-06-13 11:12 | disposition other institution (70) | DRG 470 ==
LOC: MEDSUR 04:57
PROVIDERS: ADMIT Orthopaedic Surgery Foot and Ankle Surgery; ATTEND Orthopaedic Surgery Foot and Ankle Surgery

== ENCOUNTER 2019-06-14 11:35 | Inpatient (IN) ==
[2019-06-14] MEDS ORDERED: LIDOCAINE 1% 20 ML VIAL SQ ONE (11:36)
[2019-06-14] MEDS ORDERED: PIPERACILLIN SODIUM/TAZOBACTAM 3.375 GM in DEXTROSE 5% IN WATER 50 ML IV ONE (12:07)
[2019-06-14 12:28] LABS: Basophils # (Auto) 0 K/mcL (0.0-0.3); Basophils % (Auto) 0.1 % (0.0-2.0); Eosinophils # (Auto) 0.1 K/mcL (0.0-0.7); Eosinophils % (Auto) 1.3 % (0.0-7.0); Granulocytes % (Auto) 68.5 % (38.0-78.0); Hematocrit 19.9 % (36.0-48.0); Hemoglobin 6.7 g/dL (12.0-15.0); Lymphocytes # (Auto) 0.9 K/mcL (1.5-4.8); Lymphocytes % (Auto) 15.5 % (15.5-49.0); Mean Cell Volume 81.9 fL (80.0-100.0); Mean Corpuscular HGB Conc 33.7 g/dL (31.0-36.0); Mean Platelet Volume 7.4 fL (7.4-10.4); Monocytes # (Auto) 0.8 K/mcL (0.1-0.9); Monocytes % (Auto) 14.6 % (1.0-12.0); Platelet Count 173 K/mcL (140-440); RBC 2.43 M/mcL (4.00-5.20); Red Cell Distribution Width 17.3 % (11.5-14.5); WBC 5.7 K/mcL (4.5-11.0)
[2019-06-14] MEDS: HYDROmorphone 2 MG/ML VIAL IV PRN ×4 (12:29→21:23)
[2019-06-14 12:35] LABS: ALT/SGPT 13 U/l (0-40); AST/SGOT 19 U/l (0-37); Albumin 3.2 gm/dL (3.2-5.2); Albumin/Globulin Ratio 1.3 (1.0-2.3); Alkaline Phosphatase 82 U/L (39-117); Bilirubin,Total 0.7 mg/dL (0.0-1.0); Blood Urea Nitrogen 6 mg/dl (6-20); Calcium 8.1 mg/dl (8.6-10.4); Carbon Dioxide 23 mmol/L (22-30); Chloride 103 mmol/L (96-108); Globulin 2.5 gm/dL (2.2-3.7); Glomerular Filtration Rate 106; Glucose 119 mg/dL (70-105)
[2019-06-14] MEDS ORDERED: 0.9 % SODIUM CHLORIDE 250 ML IV SCH ×2 (12:45→16:15)
--- NOTE | 2019-06-14 12:58 | Emergency Department Note ---
Lower Extremity Injury HPI - General Chief Complaint: Extremity Injury, Lower Stated Complaint: right knee pain, swelling, fever. Time Seen by Provider: 06/14/19 11:41 Source: patient, EMS Mode of arrival: ambulatory Limitations: no limitations - History of Present Illness HPI Narrative: 53-year-old female presents with weakness, pale, fevers, and redness and swelling to the right knee. Had a total knee done by Dr. Brown on 103. Was discharged from [facility] facility [facility]. [facility] reports last 12 hours she has had fevers of 103, weakness, is pale and they state the redness and swelling to the right knee is getting worse and hot to touch. Patient reports increase in pain. Positive fever and chills. Positive nausea. No vomiting or diarrhea. States she feels extremely weak. No shortness of breath. - Related Data Home Medications Medication Instructions Recorded Confirmed Estradiol 2 mg PO DAILY 05/13/19 06/14/19 HYDROcodone/ACETAMINOPHEN 1 tab PO QIDP PRN 05/13/19 06/14/19 [Hydrocodone-Acetamin 10-325 mg] Alendronate Sodium [Fosamax] 70 mg PO WEEKLY 06/06/19 06/14/19 Ergocalciferol (Vitamin D2) 50,000 unit PO WEEKLY 06/06/19 06/14/19 [Vitamin D2] Levothyroxine [Synthroid] 150 mcg PO DAILY 06/06/19 06/14/19 Liothyronine Sodium [Cytomel] 12.5 mcg PO DAILY 06/06/19 06/14/19 Lisinopril [Zestril] 10 mg PO DAILY 06/06/19 06/14/19 Omeprazole [Prilosec] 40 mg PO BID 06/06/19 06/14/19 Pregabalin [Lyrica] 75 mg PO BID 06/06/19 06/14/19 lamoTRIgine [Lamictal] 400 mg PO DAILY 06/06/19 06/14/19 Buprenorphine HCl 4 mg SL Q6H 06/07/19 06/14/19 Fluticasone Propionate [Flonase] 1 spray NS BIDP PRN 06/07/19 06/14/19 Methocarbamol [Robaxin] 750 mg PO Q8HP PRN 06/10/19 06/14/19 Acetaminophen [Tylenol] 650 mg PO Q4HP PRN 06/14/19 06/14/19 Previous Rx's Medication Instructions Recorded Ipratropium/Albuterol [Duoneb] 3 ml NEB Q6HP PRN #30 ampul.neb 07/29/15 Albuterol Sulfate [Ventolin] 2 puff INH Q6HP PRN inhaler 06/13/19 Aspirin [Ecotrin] 81 mg PO BID 14 Days #28 tablet. 06/13/19 Docusate Sodium [Colace] 100 mg PO BID cap 06/13/19 HYDROmorphone [Dilaudid] 4 mg PO Q4-6HP PRN #50 tab 06/13/19 Na Phos,M-B/Na Phos,Di-Ba [Fleets 1 dose [place] Q3-4DAYS PRN enema 06/13/19 Adult] budesonide-formoterol HFA 160 1 inh INHALATION PRN PRN #10.2 g 06/13/19 mcg-4.5 mcg/actuation aerosol inhaler Allergies Allergy/AdvReac Type Severity Reaction Status Date / Time bee venom protein (honey bee) Allergy Severe Anaphylaxis Verified 06/14/19 11:44 Review of Systems All systems ED: reviewed and negative except as stated. Past Medical History - Past Medical History [facility] Narrative: Medical History Upper respiratory infection (Acute) Bronchitis (Acute) Medical history: Reports: non-contributory, asthma, COPD, other (back pain) Surgical history ED: Reports: non-contributory - Social History smoking status: Former smoker Alcohol use: Reports: None Drug use: Reports: none Physical Exam Limitations: no limitations General appearance: sleepy, other (pale) Head: atraumatic, normocephalic, normal inspection Eye: Present: normal appearance. Absent: conjunctival injection ENT: Present: mucous membranes moist Neck: Present: normal inspection, trachea midline Chest: Present: symmetric chest wall rise Respiratory: Present: normal lung sounds bilaterally. Absent: respiratory distress, accessory muscle use Cardiovascular: Present: regular rate, normal heart sounds Extremities: Absent: normal inspection (Right knee with incision approximated with ashley intact. There is 8 cm area of redness that is hot to touch with some small blisters forming. Also moderate edema. Tender. No induration or drainage currently. There is also mild edema and ecchymosis throughout the right lower leg but no redness extending past the knee. Limited range of motion related to pain and swelling, postop.) Neurological: Present: alert (Awakens and is oriented x3 but very sleepy), oriented X3 Psychiatric: Present: normal affect, normal mood Skin: Present: warm, dry. Absent: normal color (Pale) Course Course Narrative: Beginning at 1240 I did put in several calls to Dr. Brown. He is not in the off ice and he is not answering his cell phone however we did leave him a message. At this time he has not called back. We were able to get a hold of nursing crew in the OR where Dr. Bolton as who is on-call for orthopedics. He is in the middle or just started a case and so is not going to be available for a little bit. States he will return the call regarding this patient as soon as he is out of this case. At 1320 I did speak with our hospitalist, Dr. Galvan who agrees to accept this patient. Vital Signs Temperature 100.3 F H 06/14/19 11:36 Pulse Rate 89 06/14/19 11:36 Respiratory Rate 20 06/14/19 11:36 Blood Pressure 105/60 06/14/19 11:36 Pulse Oximetry (%) 97 06/14/19 11:36 Temperature 100.3 F H 06/14/19 11:36 Pulse Rate 88 06/14/19 12:01 Respiratory Rate 20 06/14/19 11:36 Blood Pressure 104/58 06/14/19 12:01 Pulse Oximetry (%) 98 06/14/19 12:01 Extremity Injury, Lower - Lab Data Lab results reviewed: Yes I reviewed the patient's lab results. Result diagrams: 06/14/19 11:46 06/14/19 11:46 Lab Results 06/14/19 06/14/19 06/14/19 Range/Units 11:46 11:46 11:46 WBC 5.7 (4.5-11.0) K/mcL RBC 2.43 L (4.00-5.20) M/mcL Hgb 6.7 L* (12.0-15.0) g/dL Hct 19.9 L* (36.0-48.0) % MCV 81.9 (80.0-100.0) fL MCH 27.6 (26.0-34.0) pg MCHC 33.7 (31.0-36.0) g/dL RDW 17.3 H (11.5-14.5) % Plt Count 173 (140-440) K/mcL MPV 7.4 (7.4-10.4) fL Gran % 68.5 (38.0-78.0) % Lymph % (Auto) 15.5 (15.5-49.0) % [place] % (Auto) 14.6 H (1.0-12.0) % Eos % (Auto) 1.3 (0.0-7.0) % Baso % (Auto) 0.1 (0.0-2.0) % Gran # 3.9 (1.8-8.0) K/mcL Lymph # (Auto) 0.9 L (1.5-4.8) K/mcL [place] # (Auto) 0.8 (0.1-0.9) K/mcL Eos # (Auto) 0.1 (0.0-0.7) K/mcL Baso # (Auto) 0 (0.0-0.3) K/mcL VBG Lactic Acid 1.3 (0.5-2.0) mmol/L Sodium 136 (133-145) mmol/L Potassium 4.0 (3.3-5.1) mmol/L Chloride 103 (96-108) mmol/L Carbon Dioxide 23 (22-30) mmol/L Anion Gap 10.0 (8-16) BUN 6 (6-20) mg/dl Creatinine 0.6 (0.6-1.1) mg/dl GFR Calculation 106 Glucose 119 H (70-105) mg/dL Calcium 8.1 L (8.6-10.4) mg/dl Total Bilirubin 0.7 (0.0-1.0) mg/dL AST 19 (0-37) U/l ALT 13 (0-40) U/l Alkaline Phosphatase 82 (39-117) U/L Total Protein 5.7 L (5.9-8.4) gm/dL Albumin 3.2 (3.2-5.2) gm/dL Globulin 2.5 (2.2-3.7) gm/dL Albumin/Globulin Ratio 1.3 (1.0-2.3) - Radiology Data Radiology results reviewed: Yes I reviewed the patient's radiology results. Disposition Pt seen by [facility]CKER/PA only: Yes Clinical Impression: Postoperative infection of knee, Anemia, Right knee pain, Fever Disposition: Xfer Acute Care Hospital Condition: Serious Referrals: Lito Faye ARNP [Primary Care Provider] - Elaizar Brown MD [Physician] - Time of Disposition: 13:24
[2019-06-14] MEDS ORDERED: NICOTINE 14 MG PATCH TOPICAL ONE (14:05)
--- NOTE | 2019-06-14 15:28 | Orthopedic Consult Note ---
History of Present Illness - [facility] Patient information: Note initiated : 06/14/19 at 3:25 pm Service Date, if different from initiated Date: [] Patient: Ekaterina Samuel 53 y/o F admitted on 06/14/19 for right knee pain, swelling, fever.. Chief Complaint: [fever, painful right knee] Consult date: 06/14/19 Consult reason: joint pain History of present illness: Patient underwent a right TKA with Dr. Brown using the [facility] system on 06/09/19 here at [facility]. She stayed here for three nights [facility]. According to the patient and family, she's had severe right knee pain since surgery. They also state the blisters on her knee were present for the entire post op period. [facility] and returned today due to fevers of 103 degrees, being pale and lethargic. She reports severe pain in her right knee, ankle and foot. She is sleepy and having trouble concentrating. Her family denies allergies to cleansing preps but does have sensitivity to adhesives. Ioban adhesives are used during time of surgery for total knees. I cannot find what anticoagulant the patient is currently taking. Review of Systems All systems PM: reviewed and no additional remarkable complaints except as stated Constitutional: as per [facility] Medications and Allergies Home Medications Medication Instructions Recorded Confirmed Type Ipratropium/Albuterol [Duoneb] 3 ml NEB Q6HP PRN #30 ampul.neb 07/29/15 06/14/19 Rx Estradiol 2 mg PO DAILY 05/13/19 06/14/19 History HYDROcodone/ACETAMINOPHEN 1 tab PO QIDP PRN 05/13/19 06/14/19 History [Hydrocodone-Acetamin 10-325 mg] Alendronate Sodium [Fosamax] 70 mg PO WEEKLY 06/06/19 06/14/19 History Ergocalciferol (Vitamin D2) 50,000 unit PO WEEKLY 06/06/19 06/14/19 History [Vitamin D2] Levothyroxine [Synthroid] 150 mcg PO DAILY 06/06/19 06/14/19 History Liothyronine Sodium [Cytomel] 12.5 mcg PO DAILY 06/06/19 06/14/19 History Lisinopril [Zestril] 10 mg PO DAILY 06/06/19 06/14/19 History Omeprazole [Prilosec] 40 mg PO BID 06/06/19 06/14/19 History Pregabalin [Lyrica] 75 mg PO BID 06/06/19 06/14/19 History lamoTRIgine [Lamictal] 400 mg PO DAILY 06/06/19 06/14/19 History Buprenorphine HCl 4 mg SL Q6H 06/07/19 06/14/19 History Fluticasone Propionate [Flonase] 1 spray NS BIDP PRN 06/07/19 06/14/19 History Methocarbamol [Robaxin] 750 mg PO Q8HP PRN 06/10/19 06/14/19 History Albuterol Sulfate [Ventolin] 2 puff INH Q6HP PRN inhaler 06/13/19 06/14/19 Rx Aspirin [Ecotrin] 81 mg PO BID 14 Days #28 tablet. 06/13/19 06/14/19 Rx Docusate Sodium [Colace] 100 mg PO BID cap 06/13/19 06/14/19 Rx HYDROmorphone [Dilaudid] 4 mg PO Q4-6HP PRN #50 tab 06/13/19 06/14/19 Rx Na Phos,M-B/Na Phos,Di-Ba [Fleets 1 dose [place] Q3-4DAYS PRN enema 06/13/19 06/14/19 Rx Adult] budesonide-formoterol HFA 160 1 inh INHALATION PRN PRN #10.2 g 06/13/19 06/14/19 Rx mcg-4.5 mcg/actuation aerosol inhaler Acetaminophen [Tylenol] 650 mg PO Q4HP PRN 06/14/19 06/14/19 History Allergies Allergy/AdvReac Type Severity Reaction Status Date / Time bee venom protein (honey bee) Allergy Severe Anaphylaxis Verified 06/14/19 11:44 Assessment and Plan (1) Fever Status: Acute (2) Right knee pain Possible post op infection of right knee: -pending knee aspirate findings. WBC unimpressive. Recommend UA to screen for UTI. Would recommend confirming anticoag status as patient unable to answer me and if necessary, PT/INR. We will await micro results for knee aspirate prior to taking action. Possible I&D of right knee with polyliner exchange pending medical stability and clearance by hospitalist. Ecchymosis and effusion can be normal post total knee, especially if patient has not been icing/elevating appropriately. Blisters appear to be superficial reaction to ioban possibly. If knee aspirate uninfected, recommend ID consult for bullous reaction and antibiotic recommendation. -keep patient NPO just in case today. Will give further instructions once labs returned Status: Acute Exam Vital signs: Temp Pulse Resp BP Pulse Ox 100.3 F H 77 20 106/62 98 06/14/19 11:36 06/14/19 15:17 06/14/19 11:36 06/14/19 15:14 06/14/19 15:17 Constitutional: other (lethargic, pale) Head: normocephalic, atraumatic Cardiovascular: other (DP/PT pulses 2+) Musculoskeletal: other (diffuse ecchymosis along right LE. Large right knee effusion with blisters along lateral aspect. No dehisence, drainage. Lateral po rtion erythematous. No streaking. LE soft. Bruising extends to right ankle and foot. Full foot ROM. NVI. Knee markedly TTP)
[2019-06-14] MEDS ORDERED: MAGNESIUM SULFATE 2 GM/50 ML BAG IV PRN (15:48)
[2019-06-14] MEDS ORDERED: ONDANSETRON 4 MG/2 ML VIAL IV PRN (15:48)
[2019-06-14] MEDS ORDERED: FLEETS ADULT ENEMA PR PRN (15:48)
[2019-06-14] MEDS ORDERED: POTASSIUM CHLORIDE 20 MEQ PACKET PO PRN (15:48)
[2019-06-14] MEDS ORDERED: IPRATROPIUM/ALBUTEROL 3 ML AMPUL.NEB NEB PRN (15:48)
[2019-06-14] MEDS ORDERED: VANCOMYCIN PER PHARMACY IV SCH (15:48)
[2019-06-14] MEDS ORDERED: FLUTICASONE PROPIONATE SPRAY.NAS NS PRN (15:48)
[2019-06-14] MEDS ORDERED: ALBUTEROL SULFATE 1 PUFF INHALER INH PRN (15:48)
[2019-06-14] MEDS ORDERED: traZODone HCL 50 MG TABLET PO PRN (15:48)
[2019-06-14] MEDS ORDERED: POLYETHYLENE GLYCOL 3350 17 GM PACKET PO PRN (15:48)
[2019-06-14] MEDS ORDERED: ACETAMINOPHEN 325 MG TABLET PO PRN (15:48)
[2019-06-14] MEDS ORDERED: HYDROmorphone 2 MG/ML VIAL IV PRN (15:48)
[2019-06-14] MEDS ORDERED: Budesonide/Formoterol Fumarate [Symbicort] 160-4.5 mcg Inhaler INH PRN (15:48)
[2019-06-14] MEDS ORDERED: HYDROcodone/APAP 10/325MG TABLET PO PRN (15:48)
--- NOTE | 2019-06-14 16:14 | Internal Med History&Physical ---
Medical - H&P: HPI Patient information: Note initiated : 06/14/19 at 4:12 pm Service Date, if different from initiated Date: [] Patient: Ekaterina Samuel a 53 y/o F admitted on 06/14/19 for right knee pain, swelling, fever.. Chief Complaint: [] Chief complaint: Rt knee pain, fever , anemia History of present illness: Ms. Samuel is a 53 year old F who was recently admitted for right TKA done on 06/09 and was operated on by Dr. Eliazar Brown. Patient was discharged to [facility] 06/13 for continued posthospitalization rehab/right TKA postop care. Within 24 hours patient returns to the ER with increasing redness pain along the right knee along with fever. Patient has been intermittently febrile during the hospitalization however no cause was identified including negative blood cultures. Antibiotics were not initiated in light of absence of clear infectious etiology. However within 24 hours patient significantly deteriorated with increasing erythema redness extending up to the mid thigh along with ecchymosis/bruising around the inside of the thigh and leg. With increasing concern she was brought in for evaluation. She is accompanied with her daughter/friend. Initial work- up was consistent with hemoglobin 6.7/increasing redness swelling along with blistering of the knee. Patient underwent arthrocentesis and subsequently orthopedic was consulted. Orthopedic recommended hospitalist service for admission while patient will undergo joint washout in the presumed septic arthritis. On the day of discharge hemoglobin was 7.6. Patient was started on 2 units of b lood transfusion. She endorses to 9 out of 10 pain with minimal movement of the right knee. She also endorses to diminished range of motion, complains of blistering lesions around the knee. Patient denies associated headache, photophobia, cough, shortness of breath. Review of systems A 10 point review of system was performed and is negative except was discussed above Medical - H&P: PMH Medical history: Bipolar disorder GERD Hypertension Osteoarthritis COPD not on home oxygen Anemia chronic Hypothyroidism Surgical history: Right knee total arthroplasty, previous right knee surgeries Cholecystectomy Rhinoplasty Partial nephrectomy Family history: Mother hypertension Father with cirrhosis from alcohol use Social history: Patient quit smoking in July 2018 Patient quit drinking alcohol July 2018 Ambulates with a cane occasionally At home with her son Medical - H&P: Meds Home Medications Medication Instructions Recorded Confirmed Type Ipratropium/Albuterol [Obib] 3 ml NEB Q6HP PRN #30 ampul.neb 07/29/15 06/14/19 Rx Estradiol 2 mg PO DAILY 05/13/19 06/14/19 History HYDROcodone/ACETAMINOPHEN 1 tab PO QIDP PRN 05/13/19 06/14/19 History [Hydrocodone-Acetamin 10-325 mg] Alendronate Sodium [Fosamax] 70 mg PO WEEKLY 06/06/19 06/14/19 History Ergocalciferol (Vitamin D2) 50,000 unit PO WEEKLY 06/06/19 06/14/19 History [Vitamin D2] Levothyroxine [Synthroid] 150 mcg PO DAILY 06/06/19 06/14/19 History Liothyronine Sodium [Cytomel] 12.5 mcg PO DAILY 06/06/19 06/14/19 History Lisinopril [Zestril] 10 mg PO DAILY 06/06/19 06/14/19 History Omeprazole [Prilosec] 40 mg PO BID 06/06/19 06/14/19 History Pregabalin [Lyrica] 75 mg PO BID 06/06/19 06/14/19 History lamoTRIgine [Lamictal] 400 mg PO DAILY 06/06/19 06/14/19 History Buprenorphine HCl 4 mg SL Q6H 06/07/19 06/14/19 History Fluticasone Propionate [Flonase] 1 spray NS BIDP PRN 06/07/19 06/14/19 History Methocarbamol [Robaxin] 750 mg PO Q8HP PRN 06/10/19 06/14/19 History Albuterol Sulfate [Ventolin] 2 puff INH Q6HP PRN inhaler 06/13/19 06/14/19 Rx Aspirin [Ecotrin] 81 mg PO BID 14 Days #28 tablet.dr 06/13/19 06/14/19 Rx Docusate Sodium [Colace] 100 mg PO BID cap 06/13/19 06/14/19 Rx HYDROmorphone [Dilaudid] 4 mg PO Q4-6HP PRN #50 tab 06/13/19 06/14/19 Rx Na Phos,M-B/Na Phos,Di-Ba [Fleets 1 dose [place] Q3-4DAYS PRN enema 06/13/19 Rx Adult] budesonide-formoterol HFA 160 1 inh INHALATION PRN PRN #10.2 g 06/13/19 06/14/19 Rx mcg-4.5 mcg/actuation aerosol inhaler Acetaminophen [Tylenol] 650 mg PO Q4HP PRN 06/14/19 06/14/19 History Allergies Allergy/AdvReac Type Severity Reaction Status Date / Time bee venom protein (honey bee) Allergy Severe Anaphylaxis Verified 06/14/19 11:44 Medical - H&P: Exam - Constitutional Vitals: Temp Pulse Resp BP Pulse Ox 100.3 F H 77 20 106/62 98 06/14/19 11:36 06/14/19 15:17 06/14/19 11:36 06/14/19 15:14 06/14/19 15:17 General appearance: severe distress (Right knee pain) Exam: Patient lethargic under the effect of opioids Head normocephalic Eye movement symmetrical Oral cavity dry No ear nose discharge Neck no lymphadenopathy S1-S2 tachycardia Diminished breath sounds bases Abdomen soft nontender Right lower extremity ecchymosis/erythema along with swelling noted around the knee joint. Blistering lesion noted right lateral knee. Tenderness to range of motion. Skin no suspicious lesion Psych anxious and lethargic Neuro nonfocal Medical - H&P: Reslt - Labs CBC & Chem 7: 06/14/19 11:46 06/14/19 11:46 Labs: Short CBC 06/14/19 Range/Units 11:46 WBC 5.7 (4.5-11.0) K/mcL Hgb 6.7 L* (12.0-15.0) g/dL Hct 19.9 L* (36.0-48.0) % Plt Count 173 (140-440) K/mcL BMP 06/14/19 11:46 Sodium 136 Potassium 4.0 Chloride 103 Carbon Dioxide 23 BUN 6 Creatinine 0.6 Glucose 119 H Calcium 8.1 L Liver Function 06/14/19 Range/Units 11:46 Total Bilirubin 0.7 (0.0-1.0) mg/dL AST 19 (0-37) U/l ALT 13 (0-40) U/l Alkaline Phosphatase 82 (39-117) U/L Albumin 3.2 (3.2-5.2) gm/dL Medical - H&P: A/P (1) Septic arthritis of knee, right Current visit: Yes Status: Acute * Right knee swelling pain likely septic arthritis. Arthrocentesis/cell count, culture, Gram stain, fungal cultures and crystal evaluation. Results pending. Orthopedic consulted. Will likely undergo surgery in 24 hours. Keep n.p.o. after midnight. Continue broad antibiotic coverage including ce fepime/vancomycin. ID consult. * Acute blood loss anemia -hemoglobin 6.7. Likely extravasation around the surgery site. No evidence of GI bleed. 2 units blood transfusion. Continue every 6 hours hemoglobin check. * Pain management on as needed opioids * Bipolar d/o continue lamotrigine * COPD -continue bronchodilators * HTN-hold CHERYL inhibitor at this time * Hypothyroidism continue Synthroid/Cytomel * GERD continue Prilosec * Neuropathy continue Lyrica * Prophylaxis-hold anticoagulants until no evidence of further bleed. Check INR PTT PLAN * Inpatient admission * Orthopedic consult * Broad antibiotic coverage/ID consult * 4 hourly hemoglobin check * 2 units PRBC transfusion * N.p.o. after midnight * Pain management * Prior medical condition management on home meds
[2019-06-14 16:51] LABS: INR 1.2 (0.9-1.1); Prothrombin Time 15.2 sec (11.9-14.5)
--- NOTE | 2019-06-14 16:53 | XRay Report ---
CLINICAL INFORMATION: Right knee pain swelling and fever. Approximately two weeks status post total knee prostheses TECHNIQUE: Procedure and risks including possibility of bleeding and infection were explained to patient. She understood and wished to proceed. With the patient supine on the fluoroscopy table, the skin overlying the medial patellofemoral joint was fluoroscopically marked, prepped and locally anesthetized 1% lidocaine using a 25-gauge needle. An 18-gauge spinal needle was then placed under fluoroscopic guidance into the patellofemoral joint. Approximately 8 cc of sanguinous atrial fluid was aspirated and sent for requested studies. No apparent complication. Total fluoroscopy time 18 seconds IMPRESSION: Successful fluoroscopic guided aspiration of the patellofemoral joint yielding a cc of sanguinous nonpurulent fluid. Interpreted and Authenticated by: Mik Llanes 06/14/19
[2019-06-14 17:17] LABS: Crystals,Body Fluid NONE SEEN (NONE SEEN)
[2019-06-14] MEDS: CEFEPIME 2 GM VIAL IV SCH ×2 (17:36→23:43)
[2019-06-14] MEDS: OMEPRAZOLE 20 MG CAPSULE PO SCH (17:37)
[2019-06-14] MEDS: HYDROmorphone 2 MG TABLET PO PRN ×2 (17:38→22:28)
[2019-06-14] MEDS: 0.9 % SODIUM CHLORIDE 1,000 ML IV SCH (17:47)
[2019-06-14] MEDS: 0.9 % SODIUM CHLORIDE 10 ML SYRINGE IV SCH ×2 (17:47→20:52)
[2019-06-14 18:31] LABS: Appearance,Synovial Fluid BLOODY; Color,Synovial Fluid RED; Lymphocytes,Synovial Fluid 3 %; Neutrophils,Synovial Fluid 94 % (0-25); Other Cells,Synovial Fluid 3 %
--- NOTE | 2019-06-14 18:51 | Orthopedic Progress Note ---
Subjective Patient information: Note initiated : 06/14/19 at 6:43 pm Service Date, if different from initiated Date: [] Patient: Ekaterina Samuel 53 y/o F admitted on 06/14/19 for right knee pain, swelling, fever.. Chief Complaint: [] Principal diagnosis: anemia, fever, possible wound infectio right knee Objective Vital signs: Vital Signs Temp Pulse Pulse Resp BP BP Pulse Ox 06/14/19 15:20 100.3 F H 77 20 106/62 98 06/14/19 15:17 98.3 F 77 70 18 125/77 99 06/14/19 15:14 68 106/62 98 06/14/19 15:11 105/60 06/14/19 15:08 104/58 06/14/19 15:01 70 108/58 95 06/14/19 14:57 66 106/64 99 06/14/19 13:36 77 101/61 98 06/14/19 12:31 80 101/56 93 06/14/19 12:01 88 104/58 98 06/14/19 11:44 89 105/60 97 06/14/19 11:36 100.3 F H 89 20 105/60 97 Intake and Output 06/14/19 06/14/19 06/14/19 05:59 13:59 21:59 Intake Total 50 329 Output Total 900 Balance 50 -571 Intake: IV 50 4 Sodium Chloride 0.9% 250 ml @ 4 20 mls/hr IV .[id number] [facility] Rx#: [id number] Zosyn 3.375 gm In Dextrose 5% 50 in Water 50 ml @ 100 mls/hr IV ONCE ONE Rx#:[id number] Blood Product 325 Output: Void Amount 900 Other: Weight 130 lb 130 lb Patient Weight 06/15/19 05:59 Weight 130 lb Intake & Output: Intake & Output 06/14/19 06/14/19 06/14/19 05:59 13:59 21:59 Intake Total 50 329 Output Total 900 Balance 50 -571 Weight 130 lb 130 lb Intake: IV 50 4 Sodium Chloride 0.9% 250 ml @ 4 20 mls/hr IV .[id number] [facility] Rx#: [id number] Zosyn 3.375 gm In Dextrose 5% 50 in Water 50 ml @ 100 mls/hr IV ONCE ONE Rx#:[id number] Blood Product 325 Output: Void Amount 900 Incision: Yes red, Yes swollen, Yes inflamed Incision clean and dry: No Weight bearing status: full Neurological exam IM: Yes motor sensory intact - Periperhal Pulses Peripheral pulses: 3+/4+: dorsalis pedis (L), dorsalis pedis (R) - Labs CBC & BMP: 06/14/19 11:46 06/14/19 11:46 Labs: Orthopedic Labs 06/14/19 06/14/19 11:56 11:56 PT 15.2 H INR 1.2 H APTT 33 06/14/19 11:46 Hgb 6.7 L* Hct 19.9 L* Assessment and Plan (1) Wound infection after surgery Status: Acute - Narrative A/P Narrative: unresolved fever, worsening wound appearance right knee anemia pts foot pulses are very strong so I doubt vascular injury Has bled three units yet minmal bleeding at surgery. suspect sensitivity to aspirin. bleeding discussed with Dr Galvan who will work it up. wbc nl ESR and CRP pending wound has 7,898 2bc on aspiration. . At risk for wound infection or might have one. Will proceed with irrigation, debridement, antibiotic bead placement, tomorrow. Risks discussed with patient and next of kin.
[2019-06-14] MEDS ORDERED: HYDROmorphone 2 MG/ML VIAL ONE (19:02)
[2019-06-14] MEDS: VANCOMYCIN 1,000 MG in 0.9 % SODIUM CHLORIDE 250 ML IV SCH (19:05)
[2019-06-14] MEDS: BUPRENORPHINE HCL 4 MG SL SCH ×2 (19:42→23:43)
[2019-06-14] MEDS: PREGABALIN 75 MG CAPSULE PO SCH (20:50)
[2019-06-14] MEDS: ACETAMINOPHEN 325 MG TABLET PO PRN (20:50)
[2019-06-14] MEDS: METHOCARBAMOL 750 MG TABLET PO PRN (20:50)
[2019-06-14] MEDS: DOCUSATE SODIUM 100 MG CAPSULE PO SCH (20:50)
[2019-06-14] MEDS: SENNOSIDES/DOCUSATE SODIUM 1 TAB TABLET PO SCH (20:50)
[2019-06-14] MEDS ORDERED: ASPIRIN 81 MG TAB.CHEW PO SCH (21:00)
[2019-06-14] MEDS ORDERED: DOCUSATE SODIUM 100 MG CAPSULE PO SCH (21:00)
[2019-06-15] MEDS: HYDROmorphone 2 MG/ML VIAL IV PRN ×7 (01:46→20:16)
[2019-06-15] MEDS: HYDROmorphone 2 MG TABLET PO PRN ×3 (03:06→11:16)
[2019-06-15] MEDS: ACETAMINOPHEN 325 MG TABLET PO PRN ×2 (05:10→11:15)
[2019-06-15 05:43] LABS: Hematocrit 27.5 % (36.0-48.0); Hemoglobin 9.2 g/dL (12.0-15.0); Mean Cell Volume 84.2 fL (80.0-100.0); Mean Corpuscular HGB Conc 33.3 g/dL (31.0-36.0); Mean Platelet Volume 7.6 fL (7.4-10.4); Platelet Count 185 K/mcL (140-440); RBC 3.27 M/mcL (4.00-5.20); Red Cell Distribution Width 16.5 % (11.5-14.5); WBC 6.7 K/mcL (4.5-11.0)
[2019-06-15] MEDS: CEFEPIME 2 GM VIAL IV SCH ×3 (06:03→22:23)
[2019-06-15] MEDS: 0.9 % SODIUM CHLORIDE 10 ML SYRINGE IV SCH ×3 (06:04→21:23)
[2019-06-15] MEDS: BUPRENORPHINE HCL 4 MG SL SCH (06:04)
[2019-06-15 06:19] LABS: ALT/SGPT 16 U/l (0-40); AST/SGOT 20 U/l (0-37); Albumin/Globulin Ratio 0.9 (1.0-2.3); Alkaline Phosphatase 117 U/L (39-117); Bilirubin,Direct 0.4 mg/dL (0.0-0.3); Bilirubin,Total 1.1 mg/dL (0.0-1.0); Blood Urea Nitrogen 7 mg/dl (6-20); Calcium 8.5 mg/dl (8.6-10.4); Carbon Dioxide 22 mmol/L (22-30); Chloride 105 mmol/L (96-108); Globulin 3.2 gm/dL (2.2-3.7); Glomerular Filtration Rate 106; Glucose 120 mg/dL (70-105); Lactate Dehydrogenase 225 U/L (94-250); Phosphorous 3.3 mg/dL (2.7-4.5); Triglycerides 61 mg/dl (<150); Uric Acid 2.2 mg/dL (2.5-8.0)
--- NOTE | 2019-06-15 08:15 | Internal Med Progress Note ---
Medical - PN: Subj Patient information: Note initiated : 06/15/19 at 8:12 am Service Date, if different from initiated Date: [] Patient: Ekaterina Samuel a 53 y/o F admitted on 06/14/19 for right knee pain, swelling, fever.. Chief Complaint: [] Interval history: Ms. Samuel is a 53 year old F who was recently admitted for right TKA done on 06/09 and was operated on by Dr. Eliazar Brown. [facility] continued posthospitalization rehab/right TKA postop care. Within 24 hours patient returns to the ER with increasing redness pain along the right knee along with fever. Patient has been intermittently febrile during the hospitalization however no cause was identified including negative blood cultures. Antibiotics were not initiated in light of absence of clear infectious etiology. However within 24 hours patient significantly deteriorated with increasing erythema redness extending up to the mid thigh along with ecchymosis/bruising around the inside of the thigh and leg. With increasing concern she was brought in for evaluation. She is accompanied with her daughter/friend. Initial work- up was consistent with hemoglobin 6.7/increasing redness swelling along with blistering of the knee. Patient underwent arthrocentesis and subsequently orthopedic was consulted. Orthopedic recommended hospitalist service for admission while patient will undergo joint washout in the presumed septic arthritis. On the day of discharge hemoglobin was 7.6. Patient was started on 2 units of blood transfusion. She endorses to 9 out of 10 pain with minimal movement of the right knee. She also endorses to diminished range of motion, complains of blistering lesions around the knee. 06/15-patient had an uneventful night. Rested. Continues to experience 6 out of 10 to 8 out of 10 pain in the right knee. Scheduled for right knee joint washout/debridement this afternoon. T-max 101.3. On antibiotic coverage as per ID. Await intraoperative cultures. Arthrocentesis revealed 7800 cells with 94% neutrophils. High probability septic arthritis. Status post 2 units blood transfusion with hemoglobin over 9. No further drop in hemoglobin - Constitutional Vitals: Vital Signs Temp Pulse Resp BP Pulse Ox 99.1 F H 72 14 137/74 95 06/15/19 07:53 06/15/19 07:53 06/15/19 07:53 06/15/19 07:53 06/15/19 07:53 Period Temp Pulse Resp BP Sys/Joe Pulse Ox Last 24 Hr 98.3 F-101.3 F 66-89 14-20 101-146/56-79 93-99 Intake and Output 06/14/19 06/15/19 06/15/19 21:59 05:59 13:59 Intake Total 689 1010 Output Total 900 1700 850 Balance -211 690 -850 Weight 131 lb Intake & Output: Intake & Output 06/14/19 06/15/19 06/15/19 21:59 05:59 13:59 Intake Total 689 1010 Output Total 900 1700 850 Balance -211 690 -850 Weight 131 lb Intake: IV 4 Sodium Chloride 0.9% 250 ml @ 4 20 mls/hr IV .[id number] [facility] Rx#: [id number] Oral 360 1010 Blood Product 325 Output: Void Amount 900 1700 850 Other: Urine Appearance Clear Urine Color Dark Yellow Urine Odor Foul General appearance: no acute distress Exam: Alert oriented Uncomfortable due to pain Nonlabored breathing Right knee swollen and ecchymotic Medical - PN: Obj Da - Labs CBC & Chem 7: 06/15/19 05:00 06/15/19 05:00 Labs: Abnormal Lab Results 06/15/19 06/15/19 06/15/19 05:00 05:00 00:33 RBC 3.27 L Hgb 9.2 L 8.7 L Hct 27.5 L RDW 16.5 H Marion % (Auto) Lymph # (Auto) ESR PT INR Glucose 120 H Uric Acid 2.2 L Calcium 8.5 L Total Bilirubin 1.1 H Direct Bilirubin 0.4 H GGT 90 H C-Reactive Protein Total Protein Albumin 3.0 L Albumin/Globulin Ratio 0.9 L Synovial Neutrophils 06/14/19 06/14/19 06/14/19 18:50 14:25 11:56 RBC Hgb Hct RDW Marion % (Auto) Lymph # (Auto) ESR 70 H PT 15.2 H INR 1.2 H Glucose Uric Acid Calcium Total Bilirubin Direct Bilirubin GGT C-Reactive Protein Total Protein Albumin Albumin/Globulin Ratio Synovial Neutrophils 94 H 06/14/19 06/14/19 06/14/19 11:46 11:46 11:46 RBC 2.43 L Hgb 6.7 L* Hct 19.9 L* RDW 17.3 H Marion % (Auto) 14.6 H Lymph # (Auto) 0.9 L ESR PT INR Glucose 119 H Uric Acid Calcium 8.1 L Total Bilirubin Direct Bilirubin GGT C-Reactive Protein 10.8 H Total Protein 5.7 L Albumin Albumin/Globulin Ratio Synovial Neutrophils Meds: Medications Acetaminophen (Tylenol) 650 mg PO Q4-6HP PRN PRN Reason: PAIN/FEVER > 101 Last Admin: 06/15/19 05:10 Dose: 650 mg Documented by: Acetaminophen (Tylenol) 650 mg PO Q4HP PRN; Protocol PRN Reason: PAIN/FEVER > 101 Albuterol Sulfate (Ventolin) 2 puff INH Q6HP PRN PRN Reason: Shortness Of Breath Albuterol/Ipratropium (Duoneb) 3 ml NEB Q6HP PRN PRN Reason: Dyspnea Alendronate Sodium (Fosamax) 70 mg PO Q7D [facility] Cefepime HCl (Maxipime) 2 gm IV Q8H [facility]; Protocol Last Admin: 06/15/19 06:03 Dose: 2 gm Documented by: Docusate Sodium (Colace) 100 mg PO BID [facility] Last Admin: 06/14/19 20:50 Dose: 100 mg Documented by: Ergocalciferol (Drisdol) 50,000 unit PO Th@0900 [facility] Estradiol (Estrace) 2 mg PO DAILY [facility] Fluticasone Propionate (Flonase) 1 spray NS BIDP PRN PRN Reason: ALLERGIES Hydromorphone HCl (Dilaudid) 4 mg PO Q4-6HP PRN; Protocol PRN Reason: PAIN LEVEL 3-6 Last Admin: 06/15/19 07:17 Dose: 4 mg Documented by: Hydromorphone HCl (Dilaudid) 0.5 mg IV Q2HP PRN; Protocol PRN Reason: Per Pain Protocol Last Admin: 06/15/19 07:15 Dose: 0.5 mg Documented by: Magnesium Sulfate (Magnesium Sulfate) 2 gm in 50 mls @ 50 mls/hr IV UD PRN PRN Reason: MG = or < 1.7 Sodium Chloride (Sodium Chloride 0.9%) 1,000 mls @ 50 mls/hr IV .Q20H [facility] Stop: 06/17/19 03:47 Last Admin: 06/14/19 17:47 Dose: 50 mls/hr Documented by: Vancomycin HCl 1,000 mg/ (Sodium Chloride) 250 mls @ 250 mls/hr IV Q12H [facility] Last Admin: 06/14/19 19:05 Dose: 250 mls/hr Documented by: Iron Carb/Multivit/Pope/Folic Acid (Multivitamin W/Minerals) 1 tab PO DAILY [facility] Lamotrigine (Lamictal) 400 mg PO DAILY [facility] Levothyroxine Sodium (Synthroid) 150 mcg PO QAMAC [facility] Liothyronine Sodium (Cytomel) 12.5 mcg PO DAILY [facility] Lisinopril (Zestril) 10 mg PO DAILY [facility] Magnesium Hydroxide (Milk Of Magnesia) 30 ml PO HSP PRN PRN Reason: Constipation Methocarbamol (Robaxin) 750 mg PO Q8HP PRN PRN Reason: Muscle Spasm Last Admin: 06/14/19 20:50 Dose: 750 mg Documented by: Omeprazole (Prilosec) 40 mg PO BIDAC [facility] Last Admin: 06/14/19 17:37 Dose: 40 mg Documented by: Ondansetron HCl (Zofran) 4 mg IV Q4-6HP PRN PRN Reason: Nausea And Vomiting Budesonide/Formoterol Fumarate [Symbicort] 160-4.5 Mcg Inhaler 1 dose INH BIDP PRN PRN Reason: Shortness Of Breath Buprenorphine Hcl 4 (Mg Tab) 4 dose SL Q6H [facility] Last Admin: 06/15/19 06:04 Dose: Not Given Documented by: Polyethylene Glycol (Miralax) 17 gm PO DAILYP PRN PRN Reason: Constipation Potassium Chloride (Klor-Con) 40 meq PO DAILYP PRN PRN Reason: K+ < 3.5 Pregabalin (Lyrica) 75 mg PO BID [facility] Last Admin: 06/14/19 20:50 Dose: 75 mg Documented by: Senna/Docusate Sodium (Senna Plus Tablet) 1 tab PO HS [facility] Last Admin: 06/14/19 20:50 Dose: 1 tab Documented by: Sodium Biphosphate/Sodium Phosphate (Fleets Adult) 1 dose [place] Q3-4DAYS PRN PRN Reason: Constipation Sodium Chloride (Saline Flush) 10 ml IV Q8 [facility] Last Admin: 06/15/19 06:04 Dose: 10 ml Documented by: Trazodone HCl (Desyrel) 50 mg PO HSP PRN PRN Reason: Insomnia Vancomycin HCl (Vancomycin Per Pharmacy) 1 order IV UD [facility]; Protocol Medical - PN: A/P - Time Spent With Patient Total time spent is greater than 50% in coordination of care (as documented) at patient's floor/unit and/or counseling patient: 25 - 35 minutes (1) Septic arthritis of knee, right Status: Acute Assessment and plan: * Right knee septic arthritis. Over 7800 white cells with neutrophil predominance on joint aspirate. Cultures pending. Joint washout/irrigation debridement pending this afternoon. ID and orthopedics on board * Acute blood loss anemia -status post 2 units transfusion. Hemoglobin over 9. No further drop in hematocrit * Pain management stable on as needed opioids * Bipolar disorder continue home dose lamotrigine * COPD -continue supplemental oxygen/bronchodilators * HTN-hold CHERYL inhibitor until postop. Systolics around 130s at goal * Hypothyroidism continue Synthroid/Cytomel * GERD continue Prilosec * Neuropathy continue Lyrica * Prophylaxis-hold antiplatelet/anticoagulants until no evidence of further bleed. INR PTT normal PLAN * Review postoperatively * Continue antibiotic coverage including cefepime/vancomycin * Await intraoperative cultures * Pain management * Prior medical condition management on home meds * Postop PT OT Current Visit: Yes Medical - PN: Qual - VTE Deep Vein Thrombosis/Pulmonary Embolism Present on Admission: No
[2019-06-15 08:29] LABS: Anisocytosis 1+ (NONE SEEN); Band Neutrophils % 2 % (0-10); Eosinophils % (Manual) 1 % (0-7); Lymphocytes % 16 % (15-49); Monocytes % (Manual) 14 % (1-12); Platelet Estimate NORMAL (NORMAL); RBC Morphology ABNORM (NORMAL); Segmented Neutrophils % 67 % (38-78)
[2019-06-15] MEDS: OMEPRAZOLE 20 MG CAPSULE PO SCH ×2 (09:00→17:53)
[2019-06-15] MEDS: LEVOTHYROXINE 150 MCG TABLET PO SCH (09:00)
[2019-06-15] MEDS: DOCUSATE SODIUM 100 MG CAPSULE PO SCH ×2 (09:01→20:15)
[2019-06-15] MEDS: LIOTHYRONINE 5 MCG TABLET PO SCH (09:02)
[2019-06-15] MEDS: MULTIVIT,THER IRON,CA,FA & MIN 1 TABLET PO SCH (09:02)
[2019-06-15] MEDS: ESTRADIOL 1 MG TABLET PO SCH (09:02)
[2019-06-15] MEDS: PREGABALIN 75 MG CAPSULE PO SCH ×2 (09:19→20:42)
[2019-06-15] MEDS: VANCOMYCIN 1,000 MG in 0.9 % SODIUM CHLORIDE 250 ML IV SCH ×2 (09:19→20:43)
[2019-06-15] MEDS: LISINOPRIL 10 MG TABLET PO SCH (09:19)
[2019-06-15] MEDS: lamoTRIgine 100 MG TABLET PO SCH (09:20)
[2019-06-15] MEDS ORDERED: LORazepam 2 MG/ML VIAL IV ONE (13:08)
[2019-06-15] MEDS: 0.9 % SODIUM CHLORIDE 1,000 ML IV SCH ×2 (13:39→17:55)
--- NOTE | 2019-06-15 13:39 | Infectious Disease Consult ---
History of Present Illness Patient information: Note initiated : 06/15/19 at 1:17 pm Service Date, if different from initiated Date: [] Patient: Ekaterina Samuel 53 y/o F admitted on 06/14/19 for right knee pain, swelling, fever.. Chief Complaint: [] Consult date: 06/15/19 Requesting Physician: Allan Stapleton Reason for Consult: right knee swelling, concerns for infection Chief complaint: my right knee hurts badly History of present illness: 53 year old lady with recent Rt TKA using the ARTURO system on 06/09/19, is readmitted with worsening right knee swelling, fevers and lethargy/confusion. Per notes, pt's post-op course was concerning for severe right knee pain, fevers (as high as 105F), leucocytosis, blisters around the right knee and anemia. Pt was discharged to [facility] on 06/13 from where she was transferred to [facility] on 06/14. At admission, she was febrile (100.3F), BP 106/62, WBC 5.7, Hb 6.7, Cr 8.1. I was called by hospitalist, and recommended IR guided knee aspiration for cell count, GS and C/S. Pt was started on IV Vanc and IV Cefepime. She recieved a dose of IV Vanc and IV Zosyn in ER. At time of visit today, she confirmed the above Hx. Added that she is severe pain right now. She felt that the pain got worse day after surgery when she was putting weight on his lower legs. She denied any falls, trauma to the right knee. Denied any n/v, diarrhea after being on antibiotics. Mentioned that she was swabbed for something prior to surgery and given intranasal cream and below neck CHG wipes. Review of Systems All systems PM: reviewed and no additional remarkable complaints except as stated Constitutional: as per HPI Past History Past family history: no sick contacts Past social history: Vapes Quit smoking and alcohol few years ago Medications and Allergies Home Medications Medication Instructions Recorded Confirmed Type Ipratropium/Albuterol [Duoneb] 3 ml NEB Q6HP PRN #30 ampul.neb 07/29/15 06/14/19 Rx Estradiol 2 mg PO DAILY 05/13/19 06/14/19 History HYDROcodone/ACETAMINOPHEN 1 tab PO QIDP PRN 05/13/19 06/14/19 History [Hydrocodone-Acetamin 10-325 mg] Alendronate Sodium [Fosamax] 70 mg PO WEEKLY 06/06/19 06/14/19 History Ergocalciferol (Vitamin D2) 50,000 unit PO WEEKLY 06/06/19 06/14/19 History [Vitamin D2] Levothyroxine [Synthroid] 150 mcg PO DAILY 06/06/19 06/14/19 History Liothyronine Sodium [Cytomel] 12.5 mcg PO DAILY 06/06/19 06/14/19 History Lisinopril [Zestril] 10 mg PO DAILY 06/06/19 06/14/19 History Omeprazole [Prilosec] 40 mg PO BID 06/06/19 06/14/19 History Pregabalin [Lyrica] 75 mg PO BID 06/06/19 06/14/19 History lamoTRIgine [Lamictal] 400 mg PO DAILY 06/06/19 06/14/19 History Buprenorphine HCl 4 mg SL Q6H 06/07/19 06/14/19 History Fluticasone Propionate [Flonase] 1 spray NS BIDP PRN 06/07/19 06/14/19 History Methocarbamol [Robaxin] 750 mg PO Q8HP PRN 06/10/19 06/14/19 History Albuterol Sulfate [Ventolin] 2 puff INH Q6HP PRN inhaler 06/13/19 06/14/19 Rx Aspirin [Ecotrin] 81 mg PO BID 14 Days #28 tablet.dr 06/13/19 06/14/19 Rx Docusate Sodium [Colace] 100 mg PO BID cap 06/13/19 06/14/19 Rx HYDROmorphone [Dilaudid] 4 mg PO Q4-6HP PRN #50 tab 06/13/19 06/14/19 Rx Na Phos,M-B/Na Phos,Di-Ba [Fleets 1 dose OR Q3-4DAYS PRN enema 06/13/19 06/14/19 Rx Adult] budesonide-formoterol HFA 160 1 inh INHALATION PRN PRN #10.2 g 06/13/19 06/14/19 Rx mcg-4.5 mcg/actuation aerosol inhaler Acetaminophen [Tylenol] 650 mg PO Q4HP PRN 06/14/19 06/14/19 History Allergies Allergy/AdvReac Type Severity Reaction Status Date / Time bee venom protein (honey bee) Allergy Severe Anaphylaxis Verified 06/14/19 11:44 aspirin AdvReac Severe Other Verified 06/14/19 21:59 Physical Examination Vital signs: Temp Pulse Resp BP Pulse Ox 37.1 C 65 14 138/82 100 06/15/19 11:18 06/15/19 11:18 06/15/19 11:18 06/15/19 11:18 06/15/19 11:18 General appearance: no acute distress Eyes pulmonary: nonicteric ENT: oropharynx moist Effort: normal Auscultation: bilateral: clear Cardiovascular: regular rate and rhythm Gastrointestinal: normoactive bowel sounds, non-tender, non-distended Gait: other (Rt knee wrapped in dressing. Pt can wiggle toes with pain in right leg) Results - Laboratory Findings CBC and BMP: 06/15/19 13:18 06/15/19 05:00 PT/INR, D-dimer PT 15.2 sec (11.9-14.5) H 06/14/19 11:56 INR 1.2 (0.9-1.1) H 06/14/19 11:56 Abnormal lab findings: Abnormal Labs 06/14/19 06/14/19 06/14/19 11:46 11:46 11:46 RBC 2.43 L Hgb 6.7 L* Hct 19.9 L* RDW 17.3 H [place] % (Auto) 14.6 H Lymph # (Auto) 0.9 L Monocytes % (Manual) RBC Morphology Anisocytosis ESR PT INR Glucose 119 H Uric Acid Calcium 8.1 L Total Bilirubin Direct Bilirubin GGT C-Reactive Protein 10.8 H Total Protein 5.7 L Albumin Albumin/Globulin Ratio Synovial Neutrophils 06/14/19 06/14/19 06/14/19 11:56 14:25 18:50 RBC Hgb Hct RDW [place] % (Auto) Lymph # (Auto) Monocytes % (Manual) RBC Morphology Anisocytosis ESR 70 H PT 15.2 H INR 1.2 H Glucose Uric Acid Calcium Total Bilirubin Direct Bilirubin GGT C-Reactive Protein Total Protein Albumin Albumin/Globulin Ratio Synovial Neutrophils 94 H 06/15/19 06/15/19 06/15/19 00:33 05:00 05:00 RBC 3.27 L Hgb 8.7 L 9.2 L Hct 27.5 L RDW 16.5 H [place] % (Auto) Lymph # (Auto) Monocytes % (Manual) 14 H RBC Morphology Abnorm A Anisocytosis 1+ A ESR PT INR Glucose 120 H Uric Acid 2.2 L Calcium 8.5 L Total Bilirubin 1.1 H Direct Bilirubin 0.4 H GGT 90 H C-Reactive Protein Total Protein Albumin 3.0 L Albumin/Globulin Ratio 0.9 L Synovial Neutrophils Microbiology: Microbiology 06/14/19 11:50 Blood Blood Culture - Preliminary 06/14/19 15:25 Aspirate - Knee Gram Stain - Final 06/14/19 15:25 Aspirate - Knee Body Fluid Culture - Preliminary 06/14/19 15:25 Knee - Right Anaerobic Culture - Preliminary 06/14/19 21:48 Nose MRSA (PCR) - Final 06/14/19 15:25 Knee - Right Fungal Smear - Final Assessment and Plan - Narrative A/P Narrative: A: 1. Right knee septic arthritis: presence of fevers since last few days, knee swelling/redness/ongoing bleeding concerning for infection - s/p IR guided tap yesterday with bloody tap, 7898 WBCs with 94% PMNs, no crystals, GS neg, cultures pending - s/p I&D, with liner exchange today, operative Cx sent According to 2008 Journal of Arthroplasty article, in case of blood in knee aspirate, WBC adjusted = WBC observed - WBC predicted, where WBC predicted = [(WBC blood x RBC fluid/RBC in blood)]. With this calculation, adjusted WBC in right knee synovial fluid = 3,371 cells/microliter. A WBC of >1000/microliter in prosthetic joint is concerning for prosthetic joint infection. - on IV Vanc and IV Cefepime Recommendations: - Continue IV Vanc per pharmacy-assisted dosing. Check trough before the 4th dose (target 10-20) - Continue IV Cefepime 2 gm q8 hrs - will follow operative and knee aspirate Cx - consider midline placement (double lumen) - anticipate at least 4-6 weeks of IV antibiotics will follow Roland Aguirre MD Infectious diseases
[2019-06-15 13:40] LABS: Amphetamine Screen,Urine NONE DETECTED (NONDETECTED); Barbiturate Screen,Urine NONE DETECTED (NONDETECTED); Benzodiazepines Screen,Urine NONE DETECTED (NONDETECTED); Cannabinoid Screen,Urine SUSPECT POSITIVE (NONDETECTED); Cocaine Screen,Urine NONE DETECTED (NONDETECTED); Opiate Screen,Urine SUSPECT POSITIVE (NONDETECTED); Oxycodone, Urine Screen NONE DETECTED (NONDETECTED); Phencyclidine Screen,Urine NONE DETECTED (NONDETECTED)
[2019-06-15 14:16] LABS: Nucleated Cells,Synovial Fld 7898 /cumm
[2019-06-15] MEDS ORDERED: KETAMINE 100 MG/ML ML IV ONE (14:40)
[2019-06-15] MEDS ORDERED: GLYCOPYRROLATE 0.2 MG/ML VIAL IV ONE (14:40)
[2019-06-15] MEDS ORDERED: PROPOFOL 200 MG/20 ML VIAL IV ONE (14:40)
[2019-06-15] MEDS ORDERED: MIDAZOLAM 2 MG/2 ML VIAL IV ONE (14:40)
[2019-06-15] MEDS ORDERED: HYDROmorphone 2 MG/ML VIAL IV ONE (14:40)
[2019-06-15] MEDS ORDERED: ROPIVACAINE HCL/PF 30 ML VIAL IJ ONE (14:40)
[2019-06-15] MEDS ORDERED: ONDANSETRON 4 MG/2 ML VIAL IV ONE (14:40)
[2019-06-15] MEDS ORDERED: LIDOCAINE HCL/PF 100 MG/5 ML SYRINGE IV ONE (14:40)
[2019-06-15] MEDS ORDERED: TOBRAMYCIN SULFATE 1.2 GM VIAL TOPICAL ONE (15:23)
[2019-06-15] MEDS ORDERED: GENTAMICIN SULFATE 800 MG/20 ML VIAL IR ONE (15:25)
[2019-06-15] MEDS ORDERED: VANCOMYCIN 1 GM VIAL TOPICAL ONE (15:30)
--- NOTE | 2019-06-15 15:42 | Brief Operative Note ---
Date of procedure: 06/15/19 Pre-op diagnosis: infection or hemarthrosis right knee Post-op diagnosis: same Procedure: irrigation and debridement right knee with liner exchange Grafts/Implants: Yes (new polyethylene liner right knee) Anesthesia: GETA Surgeon: Eliazar Brown Specimens Removed/Pathology: other (2 joint cultures) Condition: stable Disposition: PACU
[2019-06-15] MEDS ORDERED: MAGNESIUM HYDROXIDE 30 ML ORAL.SUSP PO PRN (15:43)
[2019-06-15] MEDS ORDERED: BENZOCAINE/MENTHOL 1 LOZENGE PO PRN ×2 (15:43→16:02)
[2019-06-15] MEDS ORDERED: PROMETHAZINE 25 MG/ML VIAL IV PRN (16:02)
[2019-06-15] MEDS ORDERED: METHOCARBAMOL 1,000 MG/10 ML VIAL IV PRN (16:02)
[2019-06-15] MEDS ORDERED: MEPERIDINE 25 MG/ML SYRINGE IV PRN (16:02)
[2019-06-15] MEDS ORDERED: fentaNYL 100 MCG/2 ML VIAL IV PRN (16:02)
[2019-06-15] MEDS ORDERED: ONDANSETRON 4 MG/2 ML VIAL IV PRN (16:02)
[2019-06-15] MEDS ORDERED: IPRATROPIUM/ALBUTEROL 3 ML AMPUL.NEB NEB PRN (16:02)
[2019-06-15] MEDS ORDERED: ACETAMINOPHEN 1,000 MG/100 ML BOTTLE IV ONE (16:02)
[2019-06-15] MEDS ORDERED: HYDROmorphone 2 MG/ML VIAL IV PRN (16:02)
[2019-06-15] MEDS ORDERED: LACTATED RINGERS 1,000 ML IV SCH (16:15)
[2019-06-15] MEDS ORDERED: METOPROLOL TARTRATE 5 MG/5 ML VIAL IV ONE ×2 (17:02→17:06)
[2019-06-15] MEDS: METHOCARBAMOL 750 MG TABLET PO PRN (20:15)
[2019-06-15] MEDS: SENNOSIDES/DOCUSATE SODIUM 1 TAB TABLET PO SCH (20:15)
[2019-06-15] MEDS: MAGNESIUM HYDROXIDE 30 ML ORAL.SUSP PO PRN (20:17)
[2019-06-16] MEDS: HYDROmorphone 2 MG/ML VIAL IV PRN ×6 (00:09→19:35)
[2019-06-16] MEDS: METHOCARBAMOL 750 MG TABLET PO PRN ×2 (04:21→17:46)
[2019-06-16] MEDS: HYDROmorphone 2 MG TABLET PO PRN ×4 (04:21→18:40)
[2019-06-16] MEDS: 0.9 % SODIUM CHLORIDE 10 ML SYRINGE IV SCH ×5 (05:34→21:01)
[2019-06-16 05:40] LABS: Hematocrit 25.8 % (36.0-48.0); Hemoglobin 8.6 g/dL (12.0-15.0); Mean Cell Volume 84.6 fL (80.0-100.0); Mean Corpuscular HGB Conc 33.4 g/dL (31.0-36.0); Mean Platelet Volume 7.7 fL (7.4-10.4); Platelet Count 213 K/mcL (140-440); RBC 3.05 M/mcL (4.00-5.20); Red Cell Distribution Width 16.4 % (11.5-14.5); WBC 7.7 K/mcL (4.5-11.0)
[2019-06-16] MEDS: CEFEPIME 2 GM VIAL IV SCH ×3 (05:42→22:11)
[2019-06-16 06:14] LABS: ALT/SGPT 16 U/l (0-40); AST/SGOT 19 U/l (0-37); Albumin 2.8 gm/dL (3.2-5.2); Albumin/Globulin Ratio 0.9 (1.0-2.3); Alkaline Phosphatase 122 U/L (39-117); Bilirubin,Direct 0.3 mg/dL (0.0-0.3); Bilirubin,Total 0.8 mg/dL (0.0-1.0); Blood Urea Nitrogen 8 mg/dl (6-20); Calcium 8.6 mg/dl (8.6-10.4); Carbon Dioxide 23 mmol/L (22-30); Chloride 105 mmol/L (96-108); Globulin 3.2 gm/dL (2.2-3.7); Glomerular Filtration Rate 112; Glucose 110 mg/dL (70-105); Lactate Dehydrogenase 241 U/L (94-250); Phosphorous 2.9 mg/dL (2.7-4.5); Triglycerides 63 mg/dl (<150); Uric Acid 2.4 mg/dL (2.5-8.0)
[2019-06-16] MEDS: LEVOTHYROXINE 150 MCG TABLET PO SCH (06:47)
[2019-06-16] MEDS: ACETAMINOPHEN 325 MG TABLET PO PRN ×2 (06:47→17:46)
[2019-06-16] MEDS: OMEPRAZOLE 20 MG CAPSULE PO SCH ×2 (06:47→17:46)
[2019-06-16] MEDS: 0.9 % SODIUM CHLORIDE 1,000 ML IV SCH ×3 (07:47→19:38)
[2019-06-16 07:54] LABS: Anisocytosis 1+ (NONE SEEN); Band Neutrophils % 4 % (0-10); Hypochromasia 2+ (NONE SEEN); Lymphocytes % 11 % (15-49); Monocytes % (Manual) 10 % (1-12); Platelet Estimate NORMAL (NORMAL); Polychromasia 1+ (NONE SEEN); RBC Morphology ABNORM (NORMAL); Segmented Neutrophils % 75 % (38-78)
[2019-06-16] MEDS ORDERED: 0.9 % SODIUM CHLORIDE 10 ML SYRINGE IV PRN (08:39)
[2019-06-16] MEDS: LIOTHYRONINE 5 MCG TABLET PO SCH (08:45)
[2019-06-16] MEDS: DOCUSATE SODIUM 100 MG CAPSULE PO SCH ×2 (08:45→20:57)
[2019-06-16] MEDS: lamoTRIgine 100 MG TABLET PO SCH (08:45)
[2019-06-16] MEDS: PREGABALIN 75 MG CAPSULE PO SCH ×2 (08:45→20:57)
[2019-06-16] MEDS: MULTIVIT,THER IRON,CA,FA & MIN 1 TABLET PO SCH (08:45)
[2019-06-16] MEDS: ESTRADIOL 1 MG TABLET PO SCH (08:45)
[2019-06-16] MEDS: LISINOPRIL 10 MG TABLET PO SCH (08:46)
[2019-06-16] MEDS ORDERED: ERGOCALCIFEROL (VITAMIN D2) 50,000 UNIT CAPSULE PO SCH (09:00)
--- NOTE | 2019-06-16 09:51 | Internal Med Progress Note ---
Medical - PN: Subj Patient information: Note initiated : 06/16/19 at 9:48 am Service Date, if different from initiated Date: [] Patient: Ekaterina Samuel a 53 y/o F admitted on 06/14/19 for right knee pain, swelling, fever.. Chief Complaint: [] Interval history: Ms. Samuel is a 53 year old F who was recently admitted for right TKA done on 06/09 and was operated on by Dr. Eliazar Bronw. Patient was discharged to [facility] 06/13 for continued posthospitalization rehab/right TKA postop care. Within 24 hours patient returns to the ER with increasing redness pain along the right knee along with fever. Patient has been intermittently febrile during the hospitalization however no cause was identified including negative blood cultures. Antibiotics were not initiated in light of absence of clear infectious etiology. However within 24 hours patient significantly deteriorated with increasing erythema redness extending up to the mid thigh along with ecchymosis/bruising around the inside of the thigh and leg. With increasing concern she was brought in for evaluation. She is accompanied with her daughter/friend. Initial work- up was consistent with hemoglobin 6.7/increasing redness swelling along with blistering of the knee. Patient underwent arthrocentesis and subsequently orthopedic was consulted. Orthopedic recommended hospitalist service for admission while patient will undergo joint washout in the presumed septic arthritis. On the day of discharge hemoglobin was 7.6. Patient was started on 2 units of blood transfusion. She endorses to 9 out of 10 pain with minimal movement of the right knee. She also endorses to diminished range of motion, complains of blistering lesions around the knee. 06/15-patient had an uneventful night. Rested. Continues to experience 6 out of 10 to 8 out of 10 pain in the right knee. Scheduled for right knee joint washout/debridement this afternoon. T-max 101.3. On antibiotic coverage as per ID. Await intraoperative cultures. Arthrocentesis revealed 7800 cells with 94% neutrophils. High probability septic arthritis. Status post 2 units blood transfusion with hemoglobin over 9. No further drop in hemoglobin. 06/16-patient postop day 1. Doing well. Intermittent cramps and pain well controlled on opioids. Hemoglobin 8.6 postop. No overnight fever chills. No concerns per staff. Able to ambulate 140 feet with therapy. Joint aspirate fluid white cells over 3000 corrected.. Continue antibiotics per ID recommendations. - Constitutional Vitals: Vital Signs Temp Pulse Resp BP Pulse Ox 98.8 F 72 18 158/79 98 06/16/19 02:29 06/16/19 04:44 06/16/19 02:29 06/16/19 04:44 06/16/19 02:29 Period Temp Pulse Resp BP Sys/Joe Pulse Ox Last 24 Hr 97.5 F-98.9 F 60-80 9-18 102-180/52-90 95-100 Intake and Output 06/15/19 06/16/19 06/16/19 21:59 05:59 13:59 Intake Total 2400 1270 1000 Output Total 1900 850 Balance 889 527 0368 Weight 141 lb 12.8 oz Intake & Output: Intake & Output 06/15/19 06/16/19 06/16/19 21:59 05:59 13:59 Intake Total 2400 1270 1000 Output Total 1900 850 Balance 761 074 0270 Weight 141 lb 12.8 oz Intake: IV 022 205 5147 Sodium Chloride 0.9% 1,000 ml @ 1000 75 mls/hr IV .[id number] [facility] Rx#: [id number] Vancomycin 1,000 mg In Sodium 250 Chloride 0.9% 250 ml @ 250 mls/ hr IV Q12H [facility] Rx#:[id number] Oral 400 1020 IV - Manual Only 1900 Output: Urine Catheter Amount 1000 Straight 500 Void Amount 900 850 Other: Meal Dinner Percent of Meal Consumed 75% Feeding Ability Assist with Tray Set Up Urine Appearance Clear Clear Straight Clear Urine Color Bright Yellow Dark Yellow Straight Straw Urine Odor Normal Normal General appearance: no acute distress Exam: Right knee postop dressing Nonlabored breathing Nondistended abdomen Anxious Medical - PN: Obj Da - Labs CBC & Chem 7: 06/16/19 04:40 06/16/19 04:40 Labs: Abnormal Lab Results 06/16/19 06/16/19 06/15/19 04:40 04:40 13:18 RBC 3.05 L Hgb 8.6 L 9.1 L Hct 25.8 L RDW 16.4 H [place] % (Auto) Lymph # (Auto) Lymphocytes % 11 L Monocytes % (Manual) RBC Morphology Abnorm A Polychromasia 1+ A Hypochromasia 2+ A Anisocytosis 1+ A ESR PT INR Creatinine 0.5 L Glucose 110 H Uric Acid 2.4 L Calcium Total Bilirubin Direct Bilirubin GGT 91 H Alkaline Phosphatase 122 H C-Reactive Protein Total Protein Albumin 2.8 L Albumin/Globulin Ratio 0.9 L Synovial Neutrophils Urine Opiates Screen U Marijuana (THC) Screen 06/15/19 06/15/19 06/15/19 13:00 05:00 05:00 RBC 3.27 L Hgb 9.2 L Hct 27.5 L RDW 16.5 H [place] % (Auto) Lymph # (Auto) Lymphocytes % Monocytes % (Manual) 14 H RBC Morphology Abnorm A Polychromasia Hypochromasia Anisocytosis 1+ A ESR PT INR Creatinine Glucose 120 H Uric Acid 2.2 L Calcium 8.5 L Total Bilirubin 1.1 H Direct Bilirubin 0.4 H GGT 90 H Alkaline Phosphatase C-Reactive Protein Total Protein Albumin 3.0 L Albumin/Globulin Ratio 0.9 L Synovial Neutrophils Urine Opiates Screen Suspect positive A U Marijuana (THC) Screen Suspect positive A 06/15/19 06/14/19 06/14/19 00:33 18:50 14:25 RBC Hgb 8.7 L Hct RDW [place] % (Auto) Lymph # (Auto) Lymphocytes % Monocytes % (Manual) RBC Morphology Polychromasia Hypochromasia Anisocytosis ESR 70 H PT INR Creatinine Glucose Uric Acid Calcium Total Bilirubin Direct Bilirubin GGT Alkaline Phosphatase C-Reactive Protein Total Protein Albumin Albumin/Globulin Ratio Synovial Neutrophils 94 H Urine Opiates Screen U Marijuana (THC) Screen 06/14/19 06/14/19 06/14/19 11:56 11:46 11:46 RBC Hgb Hct RDW [place] % (Auto) Lymph # (Auto) Lymphocytes % Monocytes % (Manual) RBC Morphology Polychromasia Hypochromasia Anisocytosis ESR PT 15.2 H INR 1.2 H Creatinine Glucose 119 H Uric Acid Calcium 8.1 L Total Bilirubin Direct Bilirubin GGT Alkaline Phosphatase C-Reactive Protein 10.8 H Total Protein 5.7 L Albumin Albumin/Globulin Ratio Synovial Neutrophils Urine Opiates Screen U Marijuana (THC) Screen 06/14/19 11:46 RBC 2.43 L Hgb 6.7 L* Hct 19.9 L* RDW 17.3 H [place] % (Auto) 14.6 H Lymph # (Auto) 0.9 L Lymphocytes % Monocytes % (Manual) RBC Morphology Polychromasia Hypochromasia Anisocytosis ESR PT INR Creatinine Glucose Uric Acid Calcium Total Bilirubin Direct Bilirubin GGT Alkaline Phosphatase C-Reactive Protein Total Protein Albumin Albumin/Globulin Ratio Synovial Neutrophils Urine Opiates Screen U Marijuana (THC) Screen Meds: Medications Acetaminophen (Tylenol) 650 mg PO Q4-6HP PRN PRN Reason: PAIN/FEVER > 101 Last Admin: 06/16/19 06:47 Dose: 650 mg Documented by: Acetaminophen (Tylenol) 650 mg PO Q4HP PRN; Protocol PRN Reason: PAIN/FEVER > 101 Albuterol Sulfate (Ventolin) 2 puff INH Q6HP PRN PRN Reason: Shortness Of Breath Albuterol/Ipratropium (Duoneb) 3 ml NEB Q6HP PRN PRN Reason: Dyspnea Alendronate Sodium (Fosamax) 70 mg PO Q7D [facility] Cefepime HCl (Maxipime) 2 gm IV Q8H [facility]; Protocol Last Admin: 06/16/19 05:42 Dose: 2 gm Documented by: Docusate Sodium (Colace) 100 mg PO BID [facility] Last Admin: 06/16/19 08:45 Dose: 100 mg Documented by: Ergocalciferol (Drisdol) 50,000 unit PO Th@0900 [facility] Last Admin: 06/16/19 08:45 Dose: 50,000 unit Documented by: Estradiol (Estrace) 2 mg PO DAILY [facility] Last Admin: 06/16/19 08:45 Dose: 2 mg Documented by: Fluticasone Propionate (Flonase) 1 spray NS BIDP PRN PRN Reason: ALLERGIES Heparin Sodium (Porcine) (Heparin Flush) 2 ml IV Q12 [facility] Hydromorphone HCl (Dilaudid) 4 mg PO Q4-6HP PRN; Protocol PRN Reason: PAIN LEVEL 3-6 Last Admin: 06/16/19 04:21 Dose: 4 mg Documented by: Hydromorphone HCl (Dilaudid) 0.5 mg IV Q2HP PRN; Protocol PRN Reason: Per Pain Protocol Last Admin: 06/16/19 06:48 Dose: 0.5 mg Documented by: Magnesium Sulfate (Magnesium Sulfate) 2 gm in 50 mls @ 50 mls/hr IV UD PRN PRN Reason: MG = or < 1.7 Sodium Chloride (Sodium Chloride 0.9%) 1,000 mls @ 50 mls/hr IV .Q20H [facility] Stop: 06/17/19 03:47 Last Admin: 06/16/19 08:11 Dose: Not Given Documented by: Vancomycin HCl 1,000 mg/ (Sodium Chloride) 250 mls @ 250 mls/hr IV Q12H [facility] Last Infusion: 06/15/19 22:00 Dose: Infused Documented by: Sodium Chloride (Sodium Chloride 0.9%) 1,000 mls @ 75 mls/hr IV .[id number] [facility] Last Infusion: 06/16/19 07:47 Dose: Infused Documented by: Iron Carb/Multivit/[place]/Folic Acid (Multivitamin W/Minerals) 1 tab PO DAILY [facility] Last Admin: 06/16/19 08:45 Dose: 1 tab Documented by: Lamotrigine (Lamictal) 400 mg PO DAILY [facility] Last Admin: 06/16/19 08:45 Dose: 400 mg Documented by: Levothyroxine Sodium (Synthroid) 150 mcg PO QAMAC [facility] Last Admin: 06/16/19 06:47 Dose: 150 mcg Documented by: Liothyronine Sodium (Cytomel) 12.5 mcg PO DAILY [facility] Last Admin: 06/16/19 08:45 Dose: 12.5 mcg Documented by: Lisinopril (Zestril) 10 mg PO DAILY [facility] Last Admin: 06/16/19 08:46 Dose: 10 mg Documented by: Magnesium Hydroxide (Milk Of Magnesia) 30 ml PO HSP PRN PRN Reason: Constipation Last Admin: 06/15/19 20:17 Dose: 30 ml Documented by: Magnesium Hydroxide (Milk Of Magnesia) 30 ml PO BIDP PRN PRN Reason: Constipation Methocarbamol (Robaxin) 750 mg PO Q8HP PRN PRN Reason: Muscle Spasm Last Admin: 06/16/19 04:21 Dose: 750 mg Documented by: Omeprazole (Prilosec) 40 mg PO BIDAC [facility] Last Admin: 06/16/19 06:47 Dose: 40 mg Documented by: Ondansetron HCl (Zofran) 4 mg IV Q4-6HP PRN PRN Reason: Nausea And Vomiting Budesonide/Formoterol Fumarate [Symbicort] 160-4.5 Mcg Inhaler 1 dose INH BIDP PRN PRN Reason: Shortness Of Breath Polyethylene Glycol (Miralax) 17 gm PO DAILYP PRN PRN Reason: Constipation Potassium Chloride (Klor-Con) 40 meq PO DAILYP PRN PRN Reason: K+ < 3.5 Pregabalin (Lyrica) 75 mg PO BID [facility] Last Admin: 06/16/19 08:45 Dose: 75 mg Documented by: Senna/Docusate Sodium (Senna Plus Tablet) 1 tab PO HS [facility] Last Admin: 06/15/19 20:15 Dose: 1 tab Documented by: Sodium Biphosphate/Sodium Phosphate (Fleets Adult) 1 dose NC Q3-4DAYS PRN PRN Reason: Constipation Sodium Chloride (Saline Flush) 10 ml IV Q8 [facility] Last Admin: 06/16/19 05:34 Dose: Not Given Documented by: Sodium Chloride (Saline Flush) 10 ml IV UD PRN PRN Reason: FLUSH Sodium Chloride (Saline Flush) 10 ml IV Q12 [facility] Throat Lozenges (Cepacol) 1 lozenge PO PRN PRN PRN Reason: Sore Throat Trazodone HCl (Desyrel) 50 mg PO HSP PRN PRN Reason: Insomnia Vancomycin HCl (Vancomycin Per Pharmacy) 1 order IV UD [facility]; Protocol Medical - PN: A/P - Time Spent With Patient Total time spent is greater than 50% in coordination of care (as documented) at patient's floor/unit and/or counseling patient: 25 - 35 minutes (1) Septic arthritis of knee, right Status: Acute Assessment and plan: * Right knee septic arthritis. Status post joint washout. On antibiotic coverage per ID. Cultures pending * Acute blood loss anemia -status post 2 units transfusion. Hemoglobin stable around 8.5 * Pain management well controlled on as needed opioids * Bipolar disorder continue home dose lamotrigine * COPD -continue supplemental oxygen/bronchodilators * HTN- restart CHERYL inhibitor * Hypothyroidism continue Synthroid/Cytomel * GERD continue Prilosec * Neuropathy continue Lyrica * Prophylaxis-hold antiplatelet/anticoagulants until no evidence of further bleed. INR PTT normal PLAN * Continue postoperative PT OT * restart CHERYL inhibitors * Antibiotic coverage per ID * Await intraoperative cultures * Pain management * Prior medical condition management on home meds Current Visit: Yes Medical - PN: Qual - VTE Deep Vein Thrombosis/Pulmonary Embolism Present on Admission: No
[2019-06-16] MEDS: VANCOMYCIN 1,000 MG in 0.9 % SODIUM CHLORIDE 250 ML IV SCH ×2 (09:54→20:57)
--- NOTE | 2019-06-16 10:12 | Orthopedic Progress Note ---
Subjective Patient information: Note initiated : 06/16/19 at 10:08 am Service Date, if different from initiated Date: [] Patient: Ekaterina Samuel 53 y/o F admitted on 06/14/19 for right knee pain, swelling, fever.. Chief Complaint: [] Principal diagnosis: anemia, fever, possible wound infectio right knee Interval history: SURGERY YESTERDAY; CLOTTED BLOOD FOUND WITH NO CLINICAL PURULENCE OR ABSCESS Objective Vital signs: Vital Signs Temp Pulse Resp BP BP Pulse Ox 06/16/19 04:44 72 158/79 06/16/19 02:29 98.8 F 71 18 163/80 98 06/16/19 00:13 98.9 F 63 12 140/77 97 06/15/19 19:20 98.5 F 62 16 125/71 99 06/15/19 18:21 76 136/85 99 06/15/19 17:50 64 155/63 99 06/15/19 17:35 65 166/88 100 06/15/19 17:20 97.9 F 62 14 175/90 99 06/15/19 17:10 98.1 F 60 13 168/85 95 06/15/19 17:00 98.1 F 75 12 180/86 95 06/15/19 16:45 98.1 F 74 12 168/86 97 06/15/19 16:30 98.1 F 73 12 162/80 100 06/15/19 16:15 97.5 F 74 9 L 146/85 100 06/15/19 16:10 76 9 L 146/74 100 06/15/19 16:05 79 12 132/71 100 06/15/19 16:00 97.6 F 80 9 L 102/52 100 06/15/19 11:18 98.8 F 65 14 138/82 100 Intake and Output 06/15/19 06/16/19 06/16/19 21:59 05:59 13:59 Intake Total 2400 1270 1000 Output Total 1900 850 Balance 826 794 4800 Intake: IV 821 448 8153 Sodium Chloride 0.9% 1,000 ml @ 1000 75 mls/hr IV .[id number] [facility] Rx#: [id number] Vancomycin 1,000 mg In Sodium 250 Chloride 0.9% 250 ml @ 250 mls/ hr IV Q12H [facility] Rx#:[id number] Oral 400 1020 IV - Manual Only 1900 Output: Urine Catheter Amount 1000 Straight 500 Void Amount 900 850 Other: Meal Dinner Percent of Meal Consumed 75% Feeding Ability Assist with Tray Set Up Urine Appearance Clear Clear Straight Clear Urine Color Bright Yellow Dark Yellow Straight Straw Urine Odor Normal Normal Weight 141 lb 12.8 oz Intake & Output: Intake & Output 06/15/19 06/16/19 06/16/19 21:59 05:59 13:59 Intake Total 2400 1270 1000 Output Total 1900 850 Balance 363 398 3343 Weight 141 lb 12.8 oz Intake: IV 226 734 2741 Sodium Chloride 0.9% 1,000 ml @ 1000 75 mls/hr IV .[id number] [facility] Rx#: [id number] Vancomycin 1,000 mg In Sodium 250 Chloride 0.9% 250 ml @ 250 mls/ hr IV Q12H [facility] Rx#:[id number] Oral 400 1020 IV - Manual Only 1900 Output: Urine Catheter Amount 1000 Straight 500 Void Amount 900 850 Other: Meal Dinner Percent of Meal Consumed 75% Feeding Ability Assist with Tray Set Up Urine Appearance Clear Clear Straight Clear Urine Color Bright Yellow Dark Yellow Straight Straw Urine Odor Normal Normal Dressing: Yes clean, Yes dry Neurological exam IM: Yes neurovascular intact Extremities exam IM: Yes Foot pink and warm - Labs CBC & BMP: 06/16/19 04:40 06/16/19 04:40 Labs: Orthopedic Labs 06/14/19 06/14/19 11:56 11:56 PT 15.2 H INR 1.2 H APTT 33 06/16/19 06/15/19 06/15/19 04:40 13:18 05:00 Hgb 8.6 L 9.1 L 9.2 L Hct 25.8 L 27.5 L 06/15/19 06/14/19 00:33 11:46 Hgb 8.7 L 6.7 L* Hct 19.9 L* Assessment and Plan (1) Wound infection after surgery pod 1- didcudded mgmt with Dr Stapleton: Will onserve for another 24 hours for fever, continue broad spectrum antibiotics,checkculture results as they become available due to bleeding, will hold anticoagulation., but will continue foot pumps. Status: Acute
--- NOTE | 2019-06-16 13:46 | XRay Report ---
CLINICAL INFORMATION: PICC PLACEMENT COMPARISON: 06/12/2019 FINDINGS: Left PICC line tip overlies the SVC right atrial junction in satisfactory position. Heart size, mediastinum and pulmonary vessels are normal for technique. Lungs are clear. No effusions. IMPRESSION: PICC line in satisfactory position. Negative exam Interpreted and Authenticated by: Mik Llanes 06/16/19
--- NOTE | 2019-06-16 13:59 | Operative Note ---
DATE OF OPERATION: 06/15/2019 PREOPERATIVE DIAGNOSIS: Hematoma, possible abscess, right knee. POSTOPERATIVE DIAGNOSIS: Hematoma right knee, no abscess. OPERATION: Incision and drainage with liner exchange. SURGEON: Eliazar Brown M.D. GEOTECHNICIAL PROPERTIES TECHNICIAN: Ivet Ventura PA-C. This provider's expertise and technical skill were required throughout the case. The PA assisted with preoperative coordination, intraoperative retraction, wound closure, dressing and splint application, as well as postoperative documentation and care coordination. ANESTHESIA: General. PSYCHIATRIC ORDERLY: Storm Grant M.D. TOURNIQUET TIME: No tourniquet was used. ESTIMATED BLOOD LOSS: No acute blood loss. SUMMARY OF PROCEDURE: General anesthesia was attained. The patient's previous incision was reopened. There was a blood clot underneath the incision and this was evacuated. Two swabs of the knee below the lateral retinaculum and in the joint were taken for culture. The previous VMO split and medial retinacular split were released by cutting and removing the Stratafix suture. Getting into the joint, there was no abscess and no purulence. The joint was irrigated out with 6 liters of jet lavage the first 3 liters containing 800 mg of gentamicin. After completion of this, we then washed the knee out also with iodine solution. The liner early in the case prior to irrigation was removed in order to maximize irrigation of the back of the knee. After completing the irrigation, a new liner was next placed and impacted; 20 mL of antibiotic beads were next placed under and over the VMO. The VMO was closed as was the medial retinaculum with #2 sutures of Stratafix. Tracking was checked and the patella was well centered. The subcutaneous tissue was closed with buried 2-0 Monocryl. The skin was closed with a combination of 0 nylon and ashley. A sterile compressive dressing was applied using Telfa directly on the suture line. This was followed by an CHERYL bandage. The sponge and needle count was correct. The patient tolerated the procedure well and was taken to the recovery room in stable condition. [email or web address] Job ID: [id number] Doc ID: [id number] Eliazar Brown MD
--- NOTE | 2019-06-16 16:49 | Infectious Disease Prog Note ---
Subjective Patient information: Note initiated : 06/16/19 at 4:38 pm Service Date, if different from initiated Date: [] Patient: Ekaterina Samuel 53 y/o F admitted on 06/14/19 for right knee pain, swelling, fever.. Chief Complaint: [] Principal diagnosis: anemia, fever, possible wound infectio right knee Interval history: Pt is doing well after the surgery. Endorses pain similar to yesterday in right knee. Feels constipated. Denied any fever, chills, n/v. Objective Objective Narrative: ao x 3, in mild distress due to pain no thrush chest cta s1 s2 normal bs ++ nttd right knee: in stitches, red/warm/swollen (expected after surgery). No active dr wood no distal discoloration - Vital Signs Vital signs: Vital Signs Temp Pulse Pulse Resp BP BP Pulse Ox 06/16/19 12:00 36.9 C 70 18 132/65 98 06/16/19 08:00 36.7 C 60 14 132/71 98 06/16/19 04:44 72 158/79 06/16/19 02:29 37.1 C 71 18 163/80 98 06/16/19 00:13 37.2 C 63 12 140/77 97 06/15/19 19:20 36.9 C 62 16 125/71 99 06/15/19 18:21 76 136/85 99 06/15/19 17:50 64 155/63 99 06/15/19 17:35 65 166/88 100 06/15/19 17:20 36.6 C 62 14 175/90 99 06/15/19 17:10 36.7 C 60 13 168/85 95 06/15/19 17:00 36.7 C 75 12 180/86 95 06/15/19 16:45 36.7 C 74 12 168/86 97 Intake and Output 06/16/19 06/16/19 06/16/19 05:59 13:59 21:59 Intake Total 1270 2470 Output Total 850 1450 Balance 420 1020 Intake: IV 250 1250 Sodium Chloride 0.9% 1,000 ml @ 1000 75 mls/hr IV .[id number] [facility] Rx#: [id number] Vancomycin 1,000 mg In Sodium 250 250 Chloride 0.9% 250 ml @ 250 mls/ hr IV Q12H [facility] Rx#:[id number] Oral 1020 1220 Output: Urine Catheter Amount 1450 Void Amount 850 Other: Meal Lunch Percent of Meal Consumed 100% Urine Appearance Clear Clear Urine Color Dark Yellow Bright Yellow Urine Odor Normal Stool Size Small Stool Color Brown # Bowel Movements 1 Weight 64.319 kg Patient Weight 06/17/19 05:59 Weight 64.319 kg Intake & Output: Intake & Output 06/16/19 06/16/19 06/16/19 05:59 13:59 21:59 Intake Total 1270 2470 Output Total 850 1450 Balance 420 1020 Weight 64.319 kg Intake: IV 250 1250 Sodium Chloride 0.9% 1,000 ml @ 1000 75 mls/hr IV .[id number] [facility] Rx#: [id number] Vancomycin 1,000 mg In Sodium 250 250 Chloride 0.9% 250 ml @ 250 mls/ hr IV Q12H [facility] Rx#:[id number] Oral 1020 1220 Output: Urine Catheter Amount 1450 Void Amount 850 Other: Meal Lunch Percent of Meal Consumed 100% Urine Appearance Clear Clear Urine Color Dark Yellow Bright Yellow Urine Odor Normal Stool Size Small Stool Color Brown # Bowel Movements 1 - Lab 06/16/19 04:40 06/16/19 04:40 Most recent lab results Calcium 8.6 mg/dl (8.6-10.4) 06/16/19 04:40 Phosphorus 2.9 mg/dL (2.7-4.5) 06/16/19 04:40 Magnesium 1.9 mg/dL (1.6-2.5) 06/16/19 04:40 Microbiology 06/14/19 12:07 Blood Blood Culture - Preliminary 06/15/19 15:48 Knee - Right Gram Stain - Final 06/15/19 15:48 Knee - Right Anaerobic Culture - Preliminary 06/15/19 15:48 Knee - Right Gram Stain - Final 06/15/19 15:48 Knee - Right Tissue Culture - Preliminary 06/14/19 11:50 Blood Blood Culture - Preliminary 06/15/19 15:46 Knee - Right Gram Stain - Final 06/15/19 15:46 Knee - Right Gram Stain - Final 06/15/19 15:46 Knee - Right Anaerobic Culture - Preliminary 06/14/19 15:25 Knee - Right Anaerobic Culture - Preliminary 06/14/19 15:25 Aspirate - Knee Gram Stain - Final 06/14/19 15:25 Aspirate - Knee Body Fluid Culture - Preliminary 06/14/19 21:48 Nose MRSA (PCR) - Final 06/14/19 15:25 Knee - Right Fungal Smear - Final Medications Active Medications: Acetaminophen (Tylenol) 650 mg PO Q4-6HP PRN PRN Reason: PAIN/FEVER > 101 Last Admin: 06/16/19 06:47 Dose: 650 mg Documented by: Admin: 06/15/19 11:15 Dose: 650 mg Documented by: Admin: 06/15/19 05:10 Dose: 650 mg Documented by: Admin: 06/14/19 20:50 Dose: 650 mg Documented by: VASQUEZ Acetaminophen (Tylenol) 650 mg PO Q4HP PRN; Protocol PRN Reason: PAIN/FEVER > 101 Albuterol Sulfate (Ventolin) 2 puff INH Q6HP PRN PRN Reason: Shortness Of Breath Albuterol/Ipratropium (Duoneb) 3 ml NEB Q6HP PRN PRN Reason: Dyspnea Alendronate Sodium (Fosamax) 70 mg PO Q7D [facility] Cefepime HCl (Maxipime) 2 gm IV Q8H ANGELINA; Protocol Last Admin: 06/16/19 14:20 Dose: 2 gm Documented by: Admin: 06/16/19 05:42 Dose: 2 gm Documented by: Admin: 06/15/19 22:23 Dose: 2 gm Documented by: Admin: 06/15/19 13:18 Dose: 2 gm Documented by: [email or web address] Admin: 06/15/19 06:03 Dose: 2 gm Documented by: Admin: 06/14/19 23:43 Dose: 2 gm Documented by: Admin: 06/14/19 17:36 Dose: 2 gm Documented by: [email or web address] Docusate Sodium (Colace) 100 mg PO BID [facility] Last Admin: 06/16/19 08:45 Dose: 100 mg Documented by: Admin: 06/15/19 20:15 Dose: 100 mg Documented by: Admin: 06/15/19 09:01 Dose: Not Given Documented by: ROGELIO Non-Admin Reason: NPO Admin: 06/14/19 20:50 Dose: 100 mg Documented by: VASQUEZ Ergocalciferol (Drisdol) 50,000 unit PO Th@0900 [facility] [place] Last Admin: 06/16/19 08:45 Dose: 50,000 unit Documented by: LAVERNE Estradiol (Estrace) 2 mg PO DAILY [facility] [place] Last Admin: 06/16/19 08:45 Dose: 2 mg Documented by: Admin: 06/15/19 09:02 Dose: Not Given Documented by: ROGELIO Non-Admin Reason: NPO Fluticasone Propionate (Flonase) 1 spray NS BIDP PRN PRN Reason: ALLERGIES Heparin Sodium (Porcine) (Heparin Flush) 2 ml IV Q12 [facility] [place] Last Admin: 06/16/19 15:43 Dose: 2 ml Documented by: LAVERNE Hydromorphone HCl (Dilaudid) 4 mg PO Q4-6HP PRN; Protocol PRN Reason: PAIN LEVEL 3-6 Last Admin: 06/16/19 14:19 Dose: 4 mg Documented by: Admin: 06/16/19 09:55 Dose: 4 mg Documented by: Admin: 06/16/19 04:21 Dose: 4 mg Documented by: Admin: 06/15/19 11:16 Dose: 4 mg Documented by: Admin: 06/15/19 07:17 Dose: 4 mg Documented by: Admin: 06/15/19 03:06 Dose: 4 mg Documented by: Admin: 06/14/19 22:28 Dose: 4 mg Documented by: Admin: 06/14/19 17:38 Dose: 4 mg Documented by: [email or web address] Hydromorphone HCl (Dilaudid) 0.5 mg IV Q2HP PRN; Protocol PRN Reason: Per Pain Protocol Last Admin: 06/16/19 15:34 Dose: 0.5 mg Documented by: Admin: 06/16/19 11:39 Dose: 0.5 mg Documented by: Admin: 06/16/19 06:48 Dose: 0.5 mg Documented by: Admin: 06/16/19 02:32 Dose: 0.5 mg Documented by: Admin: 06/16/19 00:09 Dose: 0.5 mg Documented by: Admin: 06/15/19 20:16 Dose: 0.5 mg Documented by: Admin: 06/15/19 17:44 Dose: 0.5 mg Documented by: Admin: 06/15/19 11:31 Dose: 0.5 mg Documented by: Admin: 06/15/19 09:18 Dose: 0.5 mg Documented by: Admin: 06/15/19 07:15 Dose: 0.5 mg Documented by: Admin: 06/15/19 05:10 Dose: 0.5 mg Documented by: Admin: 06/15/19 01:46 Dose: 0.5 mg Documented by: Admin: 06/14/19 21:23 Dose: 0.5 mg Documented by: MARIUSZ Magnesium Sulfate (Magnesium Sulfate) 2 gm in 50 mls @ 50 mls/hr IV UD PRN PRN Reason: MG = or < 1.7 Sodium Chloride (Sodium Chloride 0.9%) 1,000 mls @ 50 mls/hr IV .Q20H [facility] Stop: 06/17/19 03:47 Last Admin: 06/16/19 08:11 Dose: Not Given Documented by: LAVERNE Non-Admin Reason: taking PO well Admin: 06/15/19 13:39 Dose: Not Given Documented by: [email or web address] Non-Admin Reason: Bag Still Infusing Infusion: 06/15/19 13:39 Dose: 0 mls/hr Documented by: [email or web address] Admin: 06/14/19 17:47 Dose: 50 mls/hr Documented by: [email or web address] Vancomycin HCl 1,000 mg/ (Sodium Chloride) 250 mls @ 250 mls/hr IV Q12H [facility] Last Infusion: 06/16/19 12:32 Dose: 0 mls/hr Documented by: Admin: 06/16/19 09:54 Dose: 250 mls/hr Documented by: Infusion: 06/15/19 22:00 Dose: 0 mls/hr Documented by: Admin: 06/15/19 20:43 Dose: 250 mls/hr Documented by: Infusion: 06/15/19 10:20 Dose: 0 mls/hr Documented by: Admin: 06/15/19 09:19 Dose: 250 mls/hr Documented by: Infusion: 06/14/19 20:05 Dose: 250 mls/hr Documented by: Admin: 06/14/19 19:05 Dose: 250 mls/hr Documented by: [email or web address] Sodium Chloride (Sodium Chloride 0.9%) 1,000 mls @ 75 mls/hr IV .[id number] [facility] [place] Last Admin: 06/16/19 07:47 Dose: Not Given Documented by: [email or web address] Non-Admin Reason: taking po well Infusion: 06/16/19 07:47 Dose: 0 mls/hr Documented by: Admin: 06/15/19 17:55 Dose: 75 mls/hr Documented by: [email or web address] Iron Carb/Multivit/Tobacco Primer Machine Operator/Folic Acid (Multivitamin W/Minerals) 1 tab PO DAILY [facility] Last Admin: 06/16/19 08:45 Dose: 1 tab Documented by: Admin: 06/15/19 09:02 Dose: Not Given Documented by: ROGELIO Non-Admin Reason: NPO Lamotrigine (Lamictal) 400 mg PO DAILY [facility] [place] Last Admin: 06/16/19 08:45 Dose: 400 mg Documented by: Admin: 06/15/19 09:20 Dose: 400 mg Documented by: ROGELIO Levothyroxine Sodium (Synthroid) 150 mcg PO QAMAC [facility] [place] Last Admin: 06/16/19 06:47 Dose: 150 mcg Documented by: Admin: 06/15/19 09:00 Dose: Not Given Documented by: ROGELIO Non-Admin Reason: NPO Liothyronine Sodium (Cytomel) 12.5 mcg PO DAILY [facility] [place] Last Admin: 06/16/19 08:45 Dose: 12.5 mcg Documented by: Admin: 06/15/19 09:02 Dose: Not Given Documented by: ROGELIO Non-Admin Reason: NPO Lisinopril (Zestril) 10 mg PO DAILY [facility] [place] Last Admin: 06/16/19 08:46 Dose: 10 mg Documented by: LAVERNE Comments: label would not scan Admin: 06/15/19 09:19 Dose: 10 mg Documented by: ROGELIO Magnesium Hydroxide (Milk Of Magnesia) 30 ml PO HSP PRN PRN Reason: Constipation Last Admin: 06/15/19 20:17 Dose: 30 ml Documented by: LINDA Magnesium Hydroxide (Milk Of Magnesia) 30 ml PO BIDP PRN PRN Reason: Constipation Methocarbamol (Robaxin) 750 mg PO Q8HP PRN PRN Reason: Muscle Spasm Last Admin: 06/16/19 04:21 Dose: 750 mg Documented by: Admin: 06/15/19 20:15 Dose: 750 mg Documented by: Admin: 06/14/19 20:50 Dose: 750 mg Documented by: VASQUEZ Omeprazole (Prilosec) 40 mg PO BIDAC [facility] [place] Last Admin: 06/16/19 06:47 Dose: 40 mg Documented by: [email or web address] Admin: 06/15/19 17:53 Dose: 40 mg Documented by: [email or web address] Admin: 06/15/19 09:00 Dose: Not Given Documented by: ROGELIO Non-Admin Reason: NPO Admin: 06/14/19 17:37 Dose: 40 mg Documented by: [email or web address] Ondansetron HCl (Zofran) 4 mg IV Q4-6HP PRN PRN Reason: Nausea And Vomiting Budesonide/Formoterol Fumarate [Symbicort] 160-4.5 Mcg Inhaler 1 dose INH BIDP PRN PRN Reason: Shortness Of Breath Polyethylene Glycol (Miralax) 17 gm PO DAILYP PRN PRN Reason: Constipation Potassium Chloride (Klor-Con) 40 meq PO DAILYP PRN PRN Reason: K+ < 3.5 Pregabalin (Lyrica) 75 mg PO BID [facility] [place] Last Admin: 06/16/19 08:45 Dose: 75 mg Documented by: Admin: 06/15/19 20:42 Dose: 75 mg Documented by: Admin: 06/15/19 09:19 Dose: 75 mg Documented by: Admin: 06/14/19 20:50 Dose: 75 mg Documented by: VASQUEZ Senna/Docusate Sodium (Senna Plus Tablet) 1 tab PO HS [facility] [place] Last Admin: 06/15/19 20:15 Dose: 1 tab Documented by: Admin: 06/14/19 20:50 Dose: 1 tab Documented by: VASQUEZ Sodium Biphosphate/Sodium Phosphate (Fleets Adult) 1 dose UT Q3-4DAYS PRN PRN Reason: Constipation Sodium Chloride (Saline Flush) 10 ml IV Q8 [facility] [place] Last Admin: 06/16/19 15:44 Dose: 10 ml Documented by: [email or web address] Admin: 06/16/19 05:34 Dose: Not Given Documented by: LINDA Non-Admin Reason: Continuous IV Admin: 06/15/19 21:23 Dose: Not Given Documented by: LINDA Non-Admin Reason: Continuous IV Admin: 06/15/19 13:18 Dose: 10 ml Documented by: [email or web address] Admin: 06/15/19 06:04 Dose: 10 ml Documented by: [email or web address] Admin: 06/14/19 20:52 Dose: 10 ml Documented by: [email or web address] Admin: 06/14/19 17:47 Dose: 10 ml Documented by: [email or web address] Sodium Chloride (Saline Flush) 10 ml IV UD PRN PRN Reason: FLUSH Sodium Chloride (Saline Flush) 10 ml IV Q12 [facility] Last Admin: 06/16/19 15:43 Dose: 10 ml Documented by: [email or web address] Throat Lozenges (Cepacol) 1 lozenge PO PRN PRN PRN Reason: Sore Throat Trazodone HCl (Desyrel) 50 mg PO HSP PRN PRN Reason: Insomnia Vancomycin HCl (Vancomycin Per Pharmacy) 1 order IV UD ANGELINA; Protocol Assessment and Plan - Narrative A/P Narrative: A: 1. Right knee deep infection: presence of high fevers daily since last few days, worsening knee pain, swelling/redness/ongoing bleeding raise concern for septic arthritis - currently afebrile since on antibiotics - no other infectious source identified. Blood cx, knee synovial fluid Cx, operative Cx NGTD: pt did recieve antibiotics prior to these procedures - s/p IR guided tap yesterday with bloody tap, 7898 WBCs [adjusted WBC are ~ 3371 cells/microliter] with 94% PMNs, no crystals, GS neg, cultures pending - s/p I&D, with liner exchange POD 1, operative Cx sent - on IV Vanc and IV Cefepime Recommendations: - Continue IV Vanc per pharmacy-assisted dosing. Vanc trough 10.3 today (in range) - Continue IV Cefepime 2 gm q8 hrs - will follow operative and knee aspirate Cx - anticipate at least 4-6 weeks of IV antibiotics - spoke with Micro to send both synovial fluid and operative tissue samples for 16S rRNA sequencing will follow Roland Aguirre MD Infectious diseases
[2019-06-16] MEDS: SENNOSIDES/DOCUSATE SODIUM 1 TAB TABLET PO SCH (20:57)
[2019-06-16] MEDS: MAGNESIUM HYDROXIDE 30 ML ORAL.SUSP PO PRN (20:57)
[2019-06-17] MEDS: HYDROmorphone 2 MG TABLET PO PRN ×3 (01:13→10:11)
[2019-06-17] MEDS: HYDROmorphone 2 MG/ML VIAL IV PRN ×3 (03:47→11:02)
[2019-06-17] MEDS: METHOCARBAMOL 750 MG TABLET PO PRN (03:50)
[2019-06-17 05:27] LABS: Hematocrit 26.1 % (36.0-48.0); Hemoglobin 8.6 g/dL (12.0-15.0); Mean Cell Volume 84.9 fL (80.0-100.0); Mean Corpuscular HGB Conc 32.8 g/dL (31.0-36.0); Mean Platelet Volume 7.6 fL (7.4-10.4); Platelet Count 267 K/mcL (140-440); RBC 3.08 M/mcL (4.00-5.20); Red Cell Distribution Width 16.2 % (11.5-14.5); WBC 6.8 K/mcL (4.5-11.0)
[2019-06-17 05:38] LABS: ALT/SGPT 18 U/l (0-40); AST/SGOT 24 U/l (0-37); Alkaline Phosphatase 146 U/L (39-117); Bilirubin,Direct 0.3 mg/dL (0.0-0.3); Bilirubin,Total 0.8 mg/dL (0.0-1.0); Blood Urea Nitrogen 6 mg/dl (6-20); Calcium 8.8 mg/dl (8.6-10.4); Carbon Dioxide 27 mmol/L (22-30); Chloride 102 mmol/L (96-108); Glomerular Filtration Rate 112; Glucose 104 mg/dL (70-105); Lactate Dehydrogenase 227 U/L (94-250); Phosphorous 2.5 mg/dL (2.7-4.5); Triglycerides 98 mg/dl (<150); Uric Acid 2.8 mg/dL (2.5-8.0)
[2019-06-17] MEDS: 0.9 % SODIUM CHLORIDE 10 ML SYRINGE IV SCH ×2 (05:39→08:47)
[2019-06-17] MEDS: CEFEPIME 2 GM VIAL IV SCH (05:39)
[2019-06-17] MEDS: LEVOTHYROXINE 150 MCG TABLET PO SCH (06:38)
[2019-06-17] MEDS: OMEPRAZOLE 20 MG CAPSULE PO SCH (06:38)
[2019-06-17 07:20] LABS: Anisocytosis 1+ (NONE SEEN); Eosinophils % (Manual) 2 % (0-7); Hypochromasia FEW (NONE SEEN); Lymphocytes % 14 % (15-49); Monocytes % (Manual) 12 % (1-12); Platelet Estimate NORMAL (NORMAL); Polychromasia FEW (NONE SEEN); RBC Morphology ABNORM (NORMAL); Segmented Neutrophils % 72 % (38-78)
[2019-06-17] MEDS: 0.9 % SODIUM CHLORIDE 1,000 ML IV SCH (08:22)
[2019-06-17] MEDS: DOCUSATE SODIUM 100 MG CAPSULE PO SCH (08:45)
[2019-06-17] MEDS: PREGABALIN 75 MG CAPSULE PO SCH (08:45)
[2019-06-17] MEDS: ESTRADIOL 1 MG TABLET PO SCH (08:45)
[2019-06-17] MEDS: MULTIVIT,THER IRON,CA,FA & MIN 1 TABLET PO SCH (08:45)
[2019-06-17] MEDS: LISINOPRIL 10 MG TABLET PO SCH (08:45)
[2019-06-17] MEDS: lamoTRIgine 100 MG TABLET PO SCH (08:45)
[2019-06-17] MEDS: LIOTHYRONINE 5 MCG TABLET PO SCH (08:46)
[2019-06-17] MEDS: VANCOMYCIN 1,000 MG in 0.9 % SODIUM CHLORIDE 250 ML IV SCH (08:46)
--- NOTE | 2019-06-17 10:14 | Orthopedic Progress Note ---
Subjective Patient information: Note initiated : 06/17/19 at 10:13 am Service Date, if different from initiated Date: [] Patient: Ekaterina Samuel 53 y/o F admitted on 06/14/19 for right knee pain, swelling, fever.. Chief Complaint: [] Principal diagnosis: anemia, fever, possible wound infectio right knee Interval history: no fevers, feels better, more cheerful Objective Vital signs: Vital Signs Temp Pulse Resp BP Pulse Ox 06/17/19 06:57 97.8 F 72 12 161/88 97 06/17/19 04:00 98.5 F 68 16 139/72 98 06/16/19 23:20 98.2 F 67 16 142/74 96 06/16/19 19:07 98.7 F 63 18 134/74 100 06/16/19 16:00 98.5 F 70 18 132/65 98 06/16/19 12:00 98.5 F 70 18 132/65 98 Intake and Output 06/16/19 06/17/19 06/17/19 21:59 05:59 13:59 Intake Total 650 800 240 Output Total 750 900 600 Balance -100 -100 -360 Intake: IV 250 Vancomycin 1,000 mg In Sodium 250 Chloride 0.9% 250 ml @ 250 mls/ hr IV Q12H [facility] Rx#:[id number] Oral 400 800 240 Output: Void Amount 750 900 600 Other: Meal Dinner Breakfast Percent of Meal Consumed 75% 100% Feeding Ability Assist with Tray Set Up Urine Appearance Clear Clear Urine Color Bright Yellow Dark Yellow Urine Odor Normal Normal Stool Size Large Stool Color Brown Stool Consistency Dry and Hard Formed # Voids 1 # Bowel Movements 1 Weight 144 lb 1.6 oz Intake & Output: Intake & Output 06/16/19 06/17/19 06/17/19 21:59 05:59 13:59 Intake Total 650 800 240 Output Total 750 900 600 Balance -100 -100 -360 Weight 144 lb 1.6 oz Intake: IV 250 Vancomycin 1,000 mg In Sodium 250 Chloride 0.9% 250 ml @ 250 mls/ hr IV Q12H [facility] Rx#:[id number] Oral 400 800 240 Output: Void Amount 750 900 600 Other: Meal Dinner Breakfast Percent of Meal Consumed 75% 100% Feeding Ability Assist with Tray Set Up Urine Appearance Clear Clear Urine Color Bright Yellow Dark Yellow Urine Odor Normal Normal Stool Size Large Stool Color Brown Stool Consistency Dry and Hard Formed # Voids 1 # Bowel Movements 1 Incision: Yes red, Yes inflamed Weight bearing status: full - Labs CBC & BMP: 06/17/19 04:30 06/17/19 04:30 Labs: Orthopedic Labs 06/14/19 06/14/19 11:56 11:56 PT 15.2 H INR 1.2 H APTT 33 06/17/19 06/16/19 06/15/19 04:30 04:40 13:18 Hgb 8.6 L 8.6 L 9.1 L Hct 26.1 L 25.8 L 06/15/19 06/15/19 06/14/19 05:00 00:33 11:46 Hgb 9.2 L 8.7 L 6.7 L* Hct 27.5 L 19.9 L* Assessment and Plan (1) Wound infection after surgery pod 1- didcudded mgmt with Dr Stapleton: Will onserve for another 24 hours for fever, continue broad spectrum antibiotics,checkculture results as they become available due to bleeding, will hold anticoagulation., but will continue foot pumps. Status: Acute
[2019-06-17] MEDS ORDERED: DAPTOmycin 500 MG VIAL IV ONE (10:23)
--- NOTE | 2019-06-17 10:49 | Discharge Summary ---
Medical - DS: Prov Patient information: Note initiated : 06/17/19 at 10:45 am Service Date, if different from initiated Date: [] Patient: Ekaterina Samuel 53 y/o F admitted on 06/14/19 for right knee pain, swelling, fever.. Chief Complaint: [] Date of admission: 06/14/19 15:17 Discharge date: 06/17/19 Primary care physician: EWA Brown Consults: 06/14/19 Consult to Physician [CONS] Stat Comment: Consulting Provider: Allan Stapleton Reason For Exam: Physician to Consult 06/14/19 15:48 Consult to Physician [CONS] Routine Comment: Consulting Provider: Roland Aguirre Reason For Exam: Physician to Consult Medical - DS: Meds - Discharge Medications Prescriptions: DAPTOmycin [Daptomycin] 500 mg IV DAILY #28 vial Prescription Printed HYDROmorphone [Dilaudid] 4 mg PO Q4-6HP PRN #40 tab PRN Reason: Pain Level 3-6 Prescription Printed Cefepime [Maxipime] 2 gm IV Q8H #56 vial Prescription Printed Active and Home Medications: Home Medications Ipratropium/Albuterol [Duoneb] 3 ml NEB Q6HP PRN #30 ampul.neb 07/29/15 [Rx Confirmed 06/14/19 Last Taken 06/08/19] Estradiol 2 mg PO DAILY 05/13/19 [History Confirmed 06/14/19 Last Taken 06/08/19] HYDROcodone/ACETAMINOPHEN [Hydrocodone-Acetamin 10-325 mg] 1 tab PO QIDP PRN 05/13/19 [History Confirmed 06/14/19 Last Taken 06/08/19] Alendronate Sodium [Fosamax] 70 mg PO WEEKLY 06/06/19 [History Confirmed 06/14/19 Last Taken 06/06/19] Ergocalciferol (Vitamin D2) [Vitamin D2] 50,000 unit PO WEEKLY 06/06/19 [History Confirmed 06/14/19 Last Taken 06/08/19] Levothyroxine [Synthroid] 150 mcg PO DAILY 06/06/19 [History Confirmed 06/14/19 Last Taken 06/08/19] Liothyronine Sodium [Cytomel] 12.5 mcg PO DAILY 06/06/19 [History Confirmed 06/14/19 Last Taken 06/08/19] Lisinopril [Zestril] 10 mg PO DAILY 06/06/19 [History Confirmed 06/14/19 Last Taken 06/08/19] Omeprazole [Prilosec] 40 mg PO BID 06/06/19 [History Confirmed 06/14/19 Last Taken 06/08/19] Pregabalin [Lyrica] 75 mg PO BID 06/06/19 [History Confirmed 06/14/19 Last Taken 06/08/19] lamoTRIgine [Lamictal] 400 mg PO DAILY 06/06/19 [History Confirmed 06/14/19 Last Taken 06/08/19] Fluticasone Propionate [Flonase] 1 spray NS BIDP PRN 06/07/19 [History Confirmed 06/14/19 Last Taken 06/08/19] Methocarbamol [Robaxin] 750 mg PO Q8HP PRN 06/10/19 [History Confirmed 06/14/19 Last Taken Unknown] Albuterol Sulfate [Ventolin] 2 puff INH Q6HP PRN inhaler 06/13/19 [Rx Confirmed 06/14/19 Last Taken Unknown] Docusate Sodium [Colace] 100 mg PO BID cap 06/13/19 [Rx Confirmed 06/14/19 Last Taken Unknown] Na Phos,M-B/Na Phos,Di-Ba [Fleets Adult] 1 dose [place] Q3-4DAYS PRN enema 06/13/19 [Rx Confirmed 06/14/19 Last Taken Unknown] budesonide-formoterol HFA 160 mcg-4.5 mcg/actuation aerosol inhaler 1 inh INHALATION PRN PRN #10.2 g 06/13/19 [Rx Confirmed 06/14/19 Last Taken Unknown] Acetaminophen [Tylenol] 650 mg PO Q4HP PRN 06/14/19 [History Confirmed 06/14/19 Last Taken Unknown] Cefepime [Maxipime] 2 gm IV Q8H #56 vial 06/17/19 [Rx Last Taken Unknown] DAPTOmycin [Daptomycin] 500 mg IV DAILY #28 vial 06/17/19 [Rx Last Taken Unknown] HYDROmorphone [Dilaudid] 4 mg PO Q4-6HP PRN #40 tab 06/17/19 [Rx Last Taken Unknown] Magnesium Hydroxide [Milk of Magnesia] 30 ml PO BIDP PRN oral.susp 06/17/19 [Rx Last Taken Unknown] Magnesium Hydroxide [Milk of Magnesia] 30 ml PO HSP PRN oral.susp 06/17/19 [Rx Last Taken Unknown] Polyethylene Glycol 3350 [Miralax] 17 gm PO DAILYP PRN packet 06/17/19 [Rx Last Taken Unknown] Sennosides/Docusate Sodium [Senna Plus Tablet] 1 tab PO HS tablet 06/17/19 [Rx Last Taken Unknown] Medical - DS: Hosp Hospital Course: Discharge diagnosis * Right knee septic arthritis. Status post joint washout 06/15. Continue IV daptomycin/cefepime per ID. Patient will follow with ID and orthopedics as outpatient on discharge. Transfer to [facility] SNF for continued posthospitalization rehab * Acute blood loss anemia -status post 2 units transfusion. Hemoglobin stable around 8.6. Orthopedic recommends staying off antiplatelets and anticoagulants. * Pain well controlled on opioid/acetaminophen * Bipolar disorder continue home dose lamotrigine * COPD -continue supplemental oxygen/bronchodilators * HTN-continue CHERYL inhibitor * Hypothyroidism continue Synthroid/Cytomel * GERD continue Prilosec * Neuropathy continue Lyrica Brief hospital course Ms. Samuel is a 53 year old F who was recently admitted for right TKA done on 06/09 and was operated on by Dr. Eliazar Brown. Patient was discharged to [facility] 06/13 for continued posthospitalization rehab/right TKA postop care. Within 24 hours patient returns to the ER with increasing redness pain along the right knee along with fever. Patient has been intermittently febrile during the hospitalization however no cause was identified including negative blood cultures. Antibiotics were not initiated in light of absence of clear infectious etiology. However within 24 hours patient significantly deteriorated with increasing erythema redness extending up to the mid thigh along with ecchymosis/bruising around the inside of the thigh and leg. With increasing concern she was brought in for evaluation. She is accompanied with her daughter/friend. Initial work- up was consistent with hemoglobin 6.7/increasing redness swelling along with blistering of the knee. Patient underwent arthrocentesis and subsequently orthopedic was consulted. Orthopedic recommended hospitalist service for admission while patient will undergo joint washout in the presumed septic arthritis. On the day of discharge hemoglobin was 7.6. Patient was started on 2 units of blood transfusion. She endorses to 9 out of 10 pain with minimal movement of the right knee. She also endorses to diminished range of motion, complains of blistering lesions around the knee. 06/15-patient had an uneventful night. Rested. Continues to experience 6 out of 10 to 8 out of 10 pain in the right knee. Scheduled for right knee joint washout/debridement this afternoon. T-max 101.3. On antibiotic coverage as per ID. Await intraoperative cultures. Arthrocentesis revealed 7800 cells with 94% neutrophils. High probability septic arthritis. Status post 2 units blood transfusion with hemoglobin over 9. No further drop in hemoglobin. 06/16-patient postop day 1. Doing well. Intermittent cramps and pain well controlled on opioids. Hemoglobin 8.6 postop. No overnight fever chills. No concerns per staff. Able to ambulate 140 feet with therapy. Joint aspirate fluid white cells over 3000 corrected.. Continue antibiotics per ID recommendations. 06/17-patient doing well. No significant postoperative issues. Hemoglobin stable. Pain is been controlled. Discharging to SNF as per orthopedic recommendations. ID recommends daptomycin/cefepime for additional 4 weeks. We will follow-up with ID and orthopedics on discharge. Continue postoperative care/weight bearing/therapies as per orthopedics Discharge diagnosis: . - Time Spent with Patient Total time spent providing and/or coordinating discharge services: Greater than 30 minutes Medical - DS: Exam - Constitutional Vitals: Vital Signs Temp Pulse Resp BP Pulse Ox 06/17/19 06:57 97.8 F 72 12 161/88 97 06/17/19 04:00 98.5 F 68 16 139/72 98 06/16/19 23:20 98.2 F 67 16 142/74 96 06/16/19 19:07 98.7 F 63 18 134/74 100 06/16/19 16:00 98.5 F 70 18 132/65 98 06/16/19 12:00 98.5 F 70 18 132/65 98 Intake and Output 06/16/19 06/17/19 06/17/19 21:59 05:59 13:59 Intake Total 650 800 540 Output Total 750 900 600 Balance -100 -100 -60 Intake: IV 250 300 Vancomycin 1,000 mg In Sodium 250 250 Chloride 0.9% 250 ml @ 250 mls/ hr IV Q12H [facility] Rx#:[id number] Oral 400 800 240 Output: Void Amount 750 900 600 Other: Meal Dinner Breakfast Percent of Meal Consumed 75% 100% Feeding Ability Assist with Tray Set Up Urine Appearance Clear Clear Urine Color Bright Yellow Dark Yellow Urine Odor Normal Normal Stool Size Large Stool Color Brown Stool Consistency Dry and Hard Formed # Voids 1 # Bowel Movements 1 Weight 144 lb 1.6 oz Medical - DS: Data Labs on day of discharge: Labs from last 24 hours 06/17/19 06/17/19 06/17/19 10:38 04:30 04:30 WBC 6.8 RBC 3.08 L Hgb 8.6 L Hct 26.1 L MCV 84.9 MCH 27.9 MCHC 32.8 RDW 16.2 H Plt Count 267 MPV 7.6 Total Counted 100 Seg Neutrophils % 72 Band Neutrophils % Not Reportable Lymphocytes % 14 L Monocytes % (Manual) 12 Eosinophils % (Manual) 2 Platelet Estimate Normal RBC Morphology Abnorm A Polychromasia Few A Hypochromasia Few A Anisocytosis 1+ A Sodium 139 Potassium 3.7 Chloride 102 Carbon Dioxide 27 Anion Gap 10.0 BUN 6 Creatinine 0.5 L GFR Calculation 112 Glucose 104 Uric Acid 2.8 Calcium 8.8 Phosphorus 2.5 L Magnesium 1.7 Total Bilirubin 0.8 Direct Bilirubin 0.3 GGT 106 H AST 24 ALT 18 Alkaline Phosphatase 146 H Lactate Dehydrogenase 227 Total Creatine Kinase Pending Total Protein 6.0 Albumin 3.0 L Globulin 3.0 Albumin/Globulin Ratio 1.0 Triglycerides 98 Miscellaneous Test 06/16/19 06/16/19 14:48 14:48 WBC RBC Hgb Hct MCV MCH MCHC RDW Plt Count MPV Total Counted Seg Neutrophils % Band Neutrophils % Lymphocytes % Monocytes % (Manual) Eosinophils % (Manual) Platelet Estimate RBC Morphology Polychromasia Hypochromasia Anisocytosis Sodium Potassium Chloride Carbon Dioxide Anion Gap BUN Creatinine GFR Calculation Glucose Uric Acid Calcium Phosphorus Magnesium Total Bilirubin Direct Bilirubin GGT AST ALT Alkaline Phosphatase Lactate Dehydrogenase Total Creatine Kinase Total Protein Albumin Globulin Albumin/Globulin Ratio Triglycerides Miscellaneous Test Pending Pending Preliminary micro results at discharge 06/14/19 12:07 Blood Culture - Preliminary Blood 06/15/19 15:48 Anaerobic Culture - Preliminary Knee - Right Tissue Culture - Preliminary 06/14/19 11:50 Blood Culture - Preliminary Blood 06/15/19 15:46 Anaerobic Culture - Preliminary Knee - Right 06/14/19 15:25 Anaerobic Culture - Preliminary Knee - Right 06/14/19 15:25 Body Fluid Culture - Preliminary Aspirate - Knee Medical - DS: A/P - Patient/Caregiver Discharge Instructions Activity: as per physical therapy, increase activity as tolerated Diet: Regular Diet Additional Instructions: Discharge Instructions: PICC line dressing changes and maintenance per facility protocol. Do not remove PICC line until Dr Aguirre gives these orders. Wound care to Right knee: See wound care orders in packet. Cover leg with boot when showering to cover wound. To avoid constipation while taking any narcotic pain medication, take an over the counter stool softener/laxative. Use your Cryocuff or ice packs as directed, on for 20 minutes at a time, throughout the day. Ice and elevation will help with pain and swelling. Call your physician for fevers above 100.5 or pain not controlled by medication. Your prescriptions are with your discharge information. You will have enough pain medication through this next thursday from Dr Brown. You have been set up with your primary care physician this next thursday who will need to restart your Suboxone. Some medications were electronically transmitted to your pharmacy of choice. Encourage patient to get out of bed frequently and move to prevent blood clots and stiffness. Continue antibiotics per ID-IV cefepime/daptomycin Follow-up with ID/orthopedics as advised. Prescriptions: DAPTOmycin [Daptomycin] 500 mg IV DAILY #28 vial Prescription Printed HYDROmorphone [Dilaudid] 4 mg PO Q4-6HP PRN #40 tab PRN Reason: Pain Level 3-6 Prescription Printed Cefepime [Maxipime] 2 gm IV Q8H #56 vial Prescription Printed Other Amb Orders: OT Discharge Order Location: None Selected Physical Therapy at Discharge - General Location: None Selected Outpatient PICC Care Location: None Selected Wound Care Instructions Location: None Selected Basic Metabolic Panel Location: None Selected Complete Blood Count Location: None Selected Creatine Kinase Location: None Selected - Problem Maintenance (1) Septic arthritis of knee, right Status: Acute - Follow up Plan Follow up with: Roland Aguirre MD [Physician] - 07/15/19 9:15 am (Please arrive at scheduled time to check-in.) Ross Kingsley [Referring] - 06/20/19 1:00 pm (Follow-up regarding restarting suboxene.) Fast,Lito, PRODUCTION REPAIRER [Primary Care Provider] - Eliazar Brown MD [Physician] - Kevin Goldberg PA-C [Physician Shingle Sawyer] - 06/24/19 10:00 am (Please arrive 15 minutes early for paperwork) Disposition: Xfer SNF Care Plan Goals: This discharge packet is provided to you to help keep you informed about your care. We want to ensure you get everything you need when you go home. You will also be receiving a call from us in a few days to follow up with you and see how you are doing since your discharge. This gives us a chance to listen to any concerns you maybe experiencing since you were discharged or any additional needs you may have, as well as providing us feedback on your care experience. We strive to always provide excellent care and thank you for your feedback and for choosing [facility]. Plan of Treatment: dsg changes increase activity antibiotics Physical therapy Health Concerns: blood clots, stiffness Prognosis: Fair Rehab Potential: Fair I certify that the patient requires SNF services: Yes Overall status at discharge: patient is progressing back to baseline Medical - DS: Qual - VTE Deep Vein Thrombosis/Pulmonary Embolism Present on Admission: No
--- NOTE | 2019-06-17 11:15 | Infectious Disease Prog Note ---
Subjective Patient information: Note initiated : 06/17/19 at 11:06 am Service Date, if different from initiated Date: [] Patient: Ekaterina Samuel 53 y/o F admitted on 06/14/19 for right knee pain, swelling, fever.. Chief Complaint: [] Principal diagnosis: anemia, fever, possible wound infectio right knee Interval history: Pt doing better, feels her pain is going down. Denied any fever, chills, n/v, diarrhea. Is ready to go to [place] today. Discussed f/u plans. Objective Objective Narrative: ao x 3, in nad no thrush Rt knee: surgical incision looks clean with ashley, no drainage. Swollen, mildly red, no blisters able to wiggle her toes without difficulty - Vital Signs Vital signs: Vital Signs Temp Pulse Pulse Resp BP Pulse Ox 06/17/19 10:44 37.4 C H 70 14 143/78 99 06/17/19 06:57 36.6 C 72 12 161/88 97 06/17/19 04:00 36.9 C 68 16 139/72 98 06/16/19 23:20 36.8 C 67 16 142/74 96 06/16/19 19:07 37.1 C 63 18 134/74 100 06/16/19 16:00 36.9 C 70 18 132/65 98 06/16/19 12:00 36.9 C 70 18 132/65 98 Intake and Output 06/16/19 06/17/19 06/17/19 21:59 05:59 13:59 Intake Total 650 800 540 Output Total 750 900 600 Balance -100 -100 -60 Intake: IV 250 300 Vancomycin 1,000 mg In Sodium 250 250 Chloride 0.9% 250 ml @ 250 mls/ hr IV Q12H [facility] Rx#:[id number] Oral 400 800 240 Output: Void Amount 750 900 600 Other: Meal Dinner Breakfast Percent of Meal Consumed 75% 100% Feeding Ability Assist with Tray Set Up Urine Appearance Clear Clear Urine Color Bright Yellow Dark Yellow Urine Odor Normal Normal Stool Size Large Stool Color Brown Stool Consistency Dry and Hard Formed # Voids 1 # Bowel Movements 1 Weight 65.363 kg Intake & Output: Intake & Output 06/16/19 06/17/19 06/17/19 21:59 05:59 13:59 Intake Total 650 800 540 Output Total 750 900 600 Balance -100 -100 -60 Weight 65.363 kg Intake: IV 250 300 Vancomycin 1,000 mg In Sodium 250 250 Chloride 0.9% 250 ml @ 250 mls/ hr IV Q12H [facility] Rx#:[id number] Oral 400 800 240 Output: Void Amount 750 900 600 Other: Meal Dinner Breakfast Percent of Meal Consumed 75% 100% Feeding Ability Assist with Tray Set Up Urine Appearance Clear Clear Urine Color Bright Yellow Dark Yellow Urine Odor Normal Normal Stool Size Large Stool Color Brown Stool Consistency Dry and Hard Formed # Voids 1 # Bowel Movements 1 - Lab 06/17/19 04:30 06/17/19 04:30 Most recent lab results Calcium 8.8 mg/dl (8.6-10.4) 06/17/19 04:30 Phosphorus 2.5 mg/dL (2.7-4.5) L 06/17/19 04:30 Magnesium 1.7 mg/dL (1.6-2.5) 06/17/19 04:30 Microbiology 06/14/19 15:25 Aspirate - Knee Gram Stain - Final 06/14/19 15:25 Aspirate - Knee Body Fluid Culture - Final 06/14/19 12:07 Blood Blood Culture - Preliminary 06/15/19 15:48 Knee - Right Gram Stain - Final 06/15/19 15:48 Knee - Right Anaerobic Culture - Preliminary 06/15/19 15:48 Knee - Right Gram Stain - Final 06/15/19 15:48 Knee - Right Tissue Culture - Preliminary 06/14/19 11:50 Blood Blood Culture - Preliminary 06/15/19 15:46 Knee - Right Gram Stain - Final 06/15/19 15:46 Knee - Right Gram Stain - Final 06/15/19 15:46 Knee - Right Anaerobic Culture - Preliminary 06/14/19 15:25 Knee - Right Anaerobic Culture - Preliminary 06/14/19 21:48 Nose MRSA (PCR) - Final 06/14/19 15:25 Knee - Right Fungal Smear - Final Medications Active Medications: Acetaminophen (Tylenol) 650 mg PO Q4-6HP PRN PRN Reason: PAIN/FEVER > 101 Last Admin: 06/16/19 17:46 Dose: 650 mg Documented by: [email or web address] Admin: 06/16/19 06:47 Dose: 650 mg Documented by: [email or web address] Admin: 06/15/19 11:15 Dose: 650 mg Documented by: Admin: 06/15/19 05:10 Dose: 650 mg Documented by: Admin: 06/14/19 20:50 Dose: 650 mg Documented by: VASQUEZ Acetaminophen (Tylenol) 650 mg PO Q4HP PRN; Protocol PRN Reason: PAIN/FEVER > 101 Albuterol Sulfate (Ventolin) 2 puff INH Q6HP PRN PRN Reason: Shortness Of Breath Albuterol/Ipratropium (Duoneb) 3 ml NEB Q6HP PRN PRN Reason: Dyspnea Alendronate Sodium (Fosamax) 70 mg PO Q7D ANGELINA Cefepime HCl (Maxipime) 2 gm IV Q8H [facility]; Protocol Last Admin: 06/17/19 05:39 Dose: 2 gm Documented by: Admin: 06/16/19 22:11 Dose: 2 gm Documented by: Admin: 06/16/19 14:20 Dose: 2 gm Documented by: Admin: 06/16/19 05:42 Dose: 2 gm Documented by: Admin: 06/15/19 22:23 Dose: 2 gm Documented by: Admin: 06/15/19 13:18 Dose: 2 gm Documented by: Admin: 06/15/19 06:03 Dose: 2 gm Documented by: Admin: 06/14/19 23:43 Dose: 2 gm Documented by: Admin: 06/14/19 17:36 Dose: 2 gm Documented by: [email or web address] Docusate Sodium (Colace) 100 mg PO BID [facility] Last Admin: 06/17/19 08:45 Dose: 100 mg Documented by: [email or web address] Admin: 06/16/19 20:57 Dose: 100 mg Documented by: Admin: 06/16/19 08:45 Dose: 100 mg Documented by: Admin: 06/15/19 20:15 Dose: 100 mg Documented by: Admin: 06/15/19 09:01 Dose: Not Given Documented by: ROGELIO Non-Admin Reason: NPO Admin: 06/14/19 20:50 Dose: 100 mg Documented by: VASQUEZ Ergocalciferol (Drisdol) 50,000 unit PO Th@0900 [facility] Last Admin: 06/16/19 08:45 Dose: 50,000 unit Documented by: LAVERNE Estradiol (Estrace) 2 mg PO DAILY [facility] Last Admin: 06/17/19 08:45 Dose: 2 mg Documented by: [email or web address] Admin: 06/16/19 08:45 Dose: 2 mg Documented by: Admin: 06/15/19 09:02 Dose: Not Given Documented by: ROGELIO Non-Admin Reason: NPO Fluticasone Propionate (Flonase) 1 spray NS BIDP PRN PRN Reason: ALLERGIES Heparin Sodium (Porcine) (Heparin Flush) 2 ml IV Q12 [facility] Last Admin: 06/17/19 10:13 Dose: 2 ml Documented by: DANIEL Comments: picc x 2 Admin: 06/16/19 20:57 Dose: 2 ml Documented by: Admin: 06/16/19 15:43 Dose: 2 ml Documented by: LAVERNE Hydromorphone HCl (Dilaudid) 4 mg PO Q4-6HP PRN; Protocol PRN Reason: PAIN LEVEL 3-6 Last Admin: 06/17/19 10:11 Dose: 4 mg Documented by: [email or web address] Admin: 06/17/19 05:38 Dose: 4 mg Documented by: Admin: 06/17/19 01:13 Dose: 4 mg Documented by: Admin: 06/16/19 18:40 Dose: 4 mg Documented by: Admin: 06/16/19 14:19 Dose: 4 mg Documented by: Admin: 06/16/19 09:55 Dose: 4 mg Documented by: Admin: 06/16/19 04:21 Dose: 4 mg Documented by: Admin: 06/15/19 11:16 Dose: 4 mg Documented by: Admin: 06/15/19 07:17 Dose: 4 mg Documented by: Admin: 06/15/19 03:06 Dose: 4 mg Documented by: Admin: 06/14/19 22:28 Dose: 4 mg Documented by: Admin: 06/14/19 17:38 Dose: 4 mg Documented by: [email or web address] Hydromorphone HCl (Dilaudid) 0.5 mg IV Q2HP PRN; Protocol PRN Reason: Per Pain Protocol Last Admin: 06/17/19 11:02 Dose: 0.5 mg Documented by: Admin: 06/17/19 06:41 Dose: 0.5 mg Documented by: Admin: 06/17/19 03:47 Dose: 0.5 mg Documented by: Admin: 06/16/19 19:35 Dose: 0.5 mg Documented by: Admin: 06/16/19 15:34 Dose: 0.5 mg Documented by: Admin: 06/16/19 11:39 Dose: 0.5 mg Documented by: Admin: 06/16/19 06:48 Dose: 0.5 mg Documented by: Admin: 06/16/19 02:32 Dose: 0.5 mg Documented by: Admin: 06/16/19 00:09 Dose: 0.5 mg Documented by: Admin: 06/15/19 20:16 Dose: 0.5 mg Documented by: Admin: 06/15/19 17:44 Dose: 0.5 mg Documented by: Admin: 06/15/19 11:31 Dose: 0.5 mg Documented by: Admin: 06/15/19 09:18 Dose: 0.5 mg Documented by: Admin: 06/15/19 07:15 Dose: 0.5 mg Documented by: Admin: 06/15/19 05:10 Dose: 0.5 mg Documented by: Admin: 06/15/19 01:46 Dose: 0.5 mg Documented by: Admin: 06/14/19 21:23 Dose: 0.5 mg Documented by: NSTOVER Magnesium Sulfate (Magnesium Sulfate) 2 gm in 50 mls @ 50 mls/hr IV UD PRN PRN Reason: MG = or < 1.7 Last Infusion: 06/17/19 10:17 Dose: 0 mls/hr Documented by: [email or web address] Admin: 06/17/19 08:46 Dose: 50 mls/hr Documented by: [facility] Sodium Chloride (Sodium Chloride 0.9%) 1,000 mls @ 75 mls/hr IV .[id number] ANGELINA Last Admin: 06/17/19 08:22 Dose: Not Given Documented by: [facility] Non-Admin Reason: saline locked Admin: 06/16/19 19:38 Dose: Not Given Documented by: [email or web address] Non-Admin Reason: Taking PO Well Admin: 06/16/19 07:47 Dose: Not Given Documented by: LAVERNE Non-Admin Reason: taking po well Infusion: 06/16/19 07:47 Dose: 0 mls/hr Documented by: Admin: 06/15/19 17:55 Dose: 75 mls/hr [facility]: [facility] Iron Carb/Multivit/[place]/Folic Acid (Multivitamin W/Minerals) 1 tab PO DAILY [facility] Last Admin: 06/17/19 08:45 Dose: 1 tab [facility]ed [facility]: [facility] Admin: 06/16/19 08:45 Dose: 1 tab Documented by: Admin: 06/15/19 09:02 Dose: Not Given Documented by: ROGELIO Non-Admin Reason: NPO Lamotrigine (Lamictal) 400 mg PO DAILY [facility] Last Admin: 06/17/19 08:45 Dose: 400 mg [facility]: [facility] Admin: 06/16/19 08:45 Dose: 400 mg Documented by: AEYoselyn Admin: 06/15/19 09:20 Dose: 400 mg Documented by: ROGELIO Levothyroxine Sodium (Synthroid) 150 mcg PO QAMAC [facility] Last Admin: 06/17/19 06:38 Dose: 150 mcg Documented by: Admin: 06/16/19 06:47 Dose: 150 mcg Documented by: Admin: 06/15/19 09:00 Dose: Not Given Documented by: ROGELIO Non-Admin Reason: NPO Liothyronine Sodium (Cytomel) 12.5 mcg PO DAILY [facility] Last Admin: 06/17/19 08:46 Dose: 12.5 mcg [facility]: [facility] Admin: 06/16/19 08:45 Dose: 12.5 mcg Documented by: Admin: 06/15/19 09:02 Dose: Not Given Documented by: ROGELIO Non-Admin Reason: NPO Lisinopril (Zestril) 10 mg PO DAILY [facility] Last Admin: 06/17/19 08:45 Dose: 10 mg Documented by: [facility] Admin: 06/16/19 08:46 Dose: 10 mg Documented by: LAVERNE Comments: label would not scan Admin: 06/15/19 09:19 Dose: 10 mg Documented by: ROGELIO Magnesium Hydroxide (Milk Of Magnesia) 30 ml PO HSP PRN PRN Reason: Constipation Last Admin: 06/16/19 20:57 Dose: 30 ml Documented by: Admin: 06/15/19 20:17 Dose: 30 ml Documented by: LINDA Magnesium Hydroxide (Milk Of Magnesia) 30 ml PO BIDP PRN PRN Reason: Constipation Methocarbamol (Robaxin) 750 mg PO Q8HP PRN PRN Reason: Muscle Spasm Last Admin: 06/17/19 03:50 Dose: 750 mg Documented by: Admin: 06/16/19 17:46 Dose: 750 mg Documented by: Admin: 06/16/19 04:21 Dose: 750 mg Documented by: Admin: 06/15/19 20:15 Dose: 750 mg Documented by: Admin: 06/14/19 20:50 Dose: 750 mg Documented by: [email or web address] Omeprazole (Prilosec) 40 mg PO BIDAC [facility] Last Admin: 06/17/19 06:38 Dose: 40 mg Documented by: Admin: 06/16/19 17:46 Dose: 40 mg Documented by: Admin: 06/16/19 06:47 Dose: 40 mg Documented by: Admin: 06/15/19 17:53 Dose: 40 mg Documented by: [email or web address] Admin: 06/15/19 09:00 Dose: Not Given Documented by: ROGELIO Non-Admin Reason: NPO Admin: 06/14/19 17:37 Dose: 40 mg Documented by: [email or web address] Ondansetron HCl (Zofran) 4 mg IV Q4-6HP PRN PRN Reason: Nausea And Vomiting Budesonide/Formoterol Fumarate [Symbicort] 160-4.5 Mcg Inhaler 1 dose INH BIDP PRN PRN Reason: Shortness Of Breath Polyethylene Glycol (Miralax) 17 gm PO DAILYP PRN PRN Reason: Constipation Potassium Chloride (Klor-Con) 40 meq PO DAILYP PRN PRN Reason: K+ < 3.5 Pregabalin (Lyrica) 75 mg PO BID [facility] Last Admin: 06/17/19 08:45 Dose: 75 mg Documented by: [email or web address] Admin: 06/16/19 20:57 Dose: 75 mg Documented by: Admin: 06/16/19 08:45 Dose: 75 mg Documented by: Admin: 06/15/19 20:42 Dose: 75 mg Documented by: Admin: 06/15/19 09:19 Dose: 75 mg Documented by: Admin: 06/14/19 20:50 Dose: 75 mg Documented by: VASQUEZ Senna/Docusate Sodium (Senna Plus Tablet) 1 tab PO HS [facility] Last Admin: 06/16/19 20:57 Dose: 1 tab Documented by: Admin: 06/15/19 20:15 Dose: 1 tab Documented by: Admin: 06/14/19 20:50 Dose: 1 tab Documented by: VASQUEZ Sodium Biphosphate/Sodium Phosphate (Fleets Adult) 1 dose MI Q3-4DAYS PRN PRN Reason: Constipation Sodium Chloride (Saline Flush) 10 ml IV Q8 [facility] Last Admin: 06/17/19 05:39 Dose: 10 ml Documented by: Admin: 06/16/19 20:58 Dose: 10 ml Documented by: Admin: 06/16/19 15:44 Dose: 10 ml Documented by: Admin: 06/16/19 05:34 Dose: Not Given Documented by: LINDA Non-Admin Reason: Continuous IV Admin: 06/15/19 21:23 Dose: Not Given Documented by: LINDA Non-Admin Reason: Continuous IV Admin: 06/15/19 13:18 Dose: 10 ml Documented by: [email or web address] Admin: 06/15/19 06:04 Dose: 10 ml Documented by: Admin: 06/14/19 20:52 Dose: 10 ml Documented by: Admin: 06/14/19 17:47 Dose: 10 ml Documented by: [email or web address] Sodium Chloride (Saline Flush) 10 ml IV UD PRN PRN Reason: FLUSH Sodium Chloride (Saline Flush) 10 ml IV Q12 [facility] Last Admin: 06/17/19 08:47 Dose: 10 ml Documented by: [email or web address] Admin: 06/16/19 21:01 Dose: Not Given Documented by: LINDA Non-Admin Reason: IV infusing Admin: 06/16/19 15:43 Dose: 10 ml Documented by: [email or web address] Throat Lozenges (Cepacol) 1 lozenge PO PRN PRN PRN Reason: Sore Throat Last Admin: 06/16/19 22:11 Dose: 1 lozenge Documented by: LINDA Trazodone HCl (Desyrel) 50 mg PO HSP PRN PRN Reason: Insomnia Last Admin: 06/16/19 20:56 Dose: 50 mg Documented by: LINDA Assessment and Plan - Narrative A/P Narrative: A: 1. Right knee deep infection: presence of high fevers daily since last few days, worsening knee pain, swelling/redness/ongoing bleeding raise concern for septic arthritis - currently afebrile since on antibiotics - no other infectious source identified. Blood cx, knee synovial fluid Cx, operative Cx NGTD: pt did recieve antibiotics prior to these procedures - s/p IR guided tap 06/14 with bloody tap, 7898 WBCs [adjusted WBC are ~ 3371 cells/microliter] with 94% PMNs, no crystals, GS neg, cultures pending - s/p I&D, with liner exchange POD 2 Daptomycin was found to be expensive for the [facility] pt is going to, and therefor it was decided to continue IV Vancomycin, while continuing Cefepime - s/p PICC line placement yesterday Recommendations: - Continue IV Vanc at 1.25 gm q12 hrs. Since pt got a dose of Daptomycin today, start IV Vanc tomorrow am. Check trough before the 4th dose. Target 15-20 - Continue IV Cefepime 2 gm q8 hrs - Tentative stop date for above antibiotics: 07/18/19 -Follow up labs: [CBC, BMP, serum Vancomycin levels (to be drawn before Vanc dose)] once weekly x 4 weeks Fax results to [phone] - ID clinic f/u appt made in 4 weeks - Pt counseled to protect her knee wound from pets, dirt, bare hands - will follow operative and knee aspirate Cx and 16S rRNA sequencing for synovial fluid and operative tissue samples Roland Aguirre MD Infectious diseases
[2019-06-17 11:28] LABS: Creatine Kinase 78 IU/L (24-170)
[2019-06-18 18:13] LABS: Cannabinoid Confirmation POSITIVE (N); Opiate Confirmation POSITIVE (N)
[2019-06-21] MEDS ORDERED: ALENDRONATE SODIUM 70 MG TABLET PO SCH (07:00)
== END 2019-06-17 11:40 | DRG 486 ==
LOC: ED 11:35 → MEDSUR 15:17
PROVIDERS: ADMIT Internal Medicine; ATTEND Internal Medicine